=== PATIENT | female | born 1995 | race Caucasian/White ===

== ENCOUNTER 2019-08-20 09:58 | Inpatient (IN) ==
[2019-08-20] MEDS ORDERED: IMODIUM PO PRN ×2 (10:22)
[2019-08-20] MEDS ORDERED: NICOTINE GUM BUCCAL PRN (10:22)
[2019-08-20] MEDS ORDERED: DULCOLAX PR PRN (10:22)
[2019-08-20] MEDS ORDERED: TUBERSOL ID ONE (10:22)
[2019-08-20] MEDS ORDERED: MAALOX PLUS LIQUID PO PRN (10:22)
[2019-08-20] MEDS ORDERED: ZOFRAN IM PRN (10:22)
[2019-08-20] MEDS ORDERED: D5W 1,000 ML IV PRN (10:22)
[2019-08-20] MEDS ORDERED: ZOFRAN ODT PO PRN (10:22)
[2019-08-20] MEDS ORDERED: SEROQUEL PO PRN (10:22)
[2019-08-20] MEDS ORDERED: PHENOBARBITAL IV PRN (10:22)
[2019-08-20 10:46] LABS: URINE SOURCE CLEAN CATCH
[2019-08-20 10:50] LABS: BILIRUBIN URINE NEGATIVE (NEGATIVE); BLOOD URINE NEGATIVE (NEGATIVE); COLOR YELLOW; GLUCOSE URINE NEGATIVE (NEGATIVE); KETONE URINE NEGATIVE (NEGATIVE); LEUKOCYTES URINE NEGATIVE (NEGATIVE); NITRITE URINE NEGATIVE (NEGATIVE); PH URINE 6.5; PROTEIN URINE 30 mg/dL (NEGATIVE); SP GRAVITY URINE 1.033; TURBIDITY URINE CLEAR (CLEAR); UROBILINOGEN URINE NORMAL (NORMAL)
[2019-08-20 10:51] LABS: UR EPITHELIAL CELLS <10 /HPF (<10); URINE BACTERIA NEGATIVE /HPF; URINE RBC <10 /HPF (<10); URINE WBC <10 /HPF (<10)
[2019-08-20] MEDS: TYLENOL PO PRN ×3 (10:57→21:54)
[2019-08-20 11:01] LABS: UR AMPHETAMINES QUAL NONE DETECTED (NONE DETECT); UR BARBITUATES QUAL NONE DETECTED (NONE DETECT); UR BENZODIAZEPIN QUAL NONE DETECTED (NONE DETECT); UR CANNABINOIDS QUAL PRESUMPTIVE POSITIVE (NONE DETECT); UR COCAINE QUAL NONE DETECTED (NONE DETECT); UR METHADONE QUAL NONE DETECTED (NONE DETECT); UR METHAMPHETAMINE QUAL PRESUMPTIVE POSITIVE (NONE DETECT); UR OPIATES QUAL NONE DETECTED (NONE DETECT); UR OXYCODONE QUAL NONE DETECTED (NONE DETECT); UR PCP QUAL NONE DETECTED (NONE DETECT); UR PROPOXYPHENE QUAL NONE DETECTED (NONE DETECT); UR TCA QUAL PRESUMPTIVE POSITIVE (NONE DETECT)
[2019-08-20 11:09] LABS: HEMATOCRIT 42.1 % (37.0-47.0); HEMOGLOBIN 14.4 g/dL (12.0-16.0); MCH 31.2 PG (27-31); MCHC 34.2 g/dL (33-37); MCV 91.1 FL (81-99); MPV 9.7 FL (7.4-10.4); RBC 4.62 XMIL (4.2-5.4); RDW 12.8 % (11.5-14.5); WBC 7.22 X1000 (4.8-10.8)
[2019-08-20 11:26] LABS: AGAP 11; ALBUMIN 4.4 g/dL (3.5-5.0); ALKALINE PHOSPHATASE 116 U/L (32-104); AMYLASE 33 U/L (20-200); BUN 10 mg/dL (8-22); CALCIUM 9.2 mg/dL (8.8-10.2); CHLORIDE 102 mmol/L (98-107); COSMO 278; CREATININE 0.7 mg/dL (0.5-0.9); ESTIMATED GFR > 60; GLUCOSE 86 mg/dL (70-104); GOT 37 U/L (10-30); GPT 32 U/L (10-36); LIPASE 20 U/L (13-60); SODIUM 140 mmol/L (136-145); TCO2 27 mmol/L (25-35); TOTAL PROTEIN 7.3 g/dL (6.3-8.3)
[2019-08-20 11:44] LABS: PROTIME 13.7 Seconds (11.0-16.0)
[2019-08-20] MEDS: SENOKOT PO PRN (12:10)
[2019-08-20] MEDS: NICODERM PATCH TD PRN (12:11)
[2019-08-20] MEDS ORDERED: ROBAXIN PO PRN (12:53)
[2019-08-20] MEDS ORDERED: BENTYL PO PRN (12:53)
[2019-08-20] MEDS ORDERED: LIBRIUM PO PRN (12:53)
[2019-08-20] MEDS ORDERED: SINEMET 25/100 PO PRN (12:53)
[2019-08-20] MEDS ORDERED: NEURONTIN PO SCH (13:00)
[2019-08-20] MEDS: SUBOXONE 2 MG/0.5 MG FILM SL SCH (13:41)
[2019-08-20] MEDS: NEURONTIN PO SCH ×3 (13:41→20:22)
--- NOTE | 2019-08-20 14:16 | EKG Report ---
Test Performed on : 08/20/2019 2:11:29 PM Test Reason : chest pain Blood Pressure : / mmHG Vent. Rate : 095 BPM Atrial Rate : 095 BPM P-R Int : 130 ms QRS Dur : 102 ms QT Int : 356 ms P-R-T Axes : 054 060 034 degrees QTc Int : 447 ms Normal sinus rhythm. Normal ECG No previous ECGs available Confirmed by Ranjit Hernadez MD ([id number]) on 08/23/2019 7:34:26 AM
--- NOTE | 2019-08-20 14:48 | Diag Imaging Result Doc PS360 ---
EXAM: CHEST-PORTABLE - 08/20/2019 HISTORY: chest pain hard to breath TECHNIQUE: Portable chest COMPARISON: 11/01/2011 FINDINGS: Inspiration is mildly shallow. Heart size appears normal. There is subsegmental atelectasis at the lateral left base. The remainder of the lungs appear clear. There is no vascular congestion, pleural effusion, or pneumothorax identified. IMPRESSION: Mildly shallow inspiration. Mild atelectasis at lateral left base. No discrete pneumonia. No evidence of pneumothorax. Electronically signed by Malcolm Red 08/20/2019 2:45 PM
[2019-08-20] MEDS: KLONOPIN PO PRN (15:58)
[2019-08-20] MEDS: MOTRIN PO PRN (17:41)
[2019-08-20] MEDS: ATARAX PO PRN (18:47)
[2019-08-20] MEDS: LAMICTAL PO SCH (20:22)
[2019-08-20] MEDS: SEROQUEL PO SCH (20:22)
[2019-08-20] MEDS: LUVOX PO SCH (20:23)
[2019-08-20] MEDS: DESYREL PO PRN (21:54)
[2019-08-21] MEDS: SUBOXONE 2 MG/0.5 MG FILM SL SCH (01:03)
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
[2019-08-21] MEDS: MOTRIN PO PRN ×2 (04:54→22:45)
[2019-08-21] MEDS: PROTONIX [NONFORMULARY] PO SCH ×2 (04:55→05:59)
[2019-08-21] MEDS: SEROQUEL PO SCH ×2 (09:16→20:14)
[2019-08-21] MEDS: KLONOPIN PO PRN (09:16)
[2019-08-21] MEDS: THERA M PLUS PO SCH (09:17)
[2019-08-21] MEDS: VITAMIN B-1 PO SCH (09:17)
[2019-08-21] MEDS: FOLIC ACID PO SCH (09:17)
[2019-08-21] MEDS: TYLENOL PO PRN ×3 (09:17→20:45)
[2019-08-21] MEDS: NEURONTIN PO SCH ×3 (09:17→20:13)
[2019-08-21] MEDS: LUVOX PO SCH ×2 (09:17→20:14)
[2019-08-21] MEDS: LAMICTAL PO SCH ×2 (09:17→20:13)
[2019-08-21] MEDS ORDERED: MOVANTIK PO ONE (12:45)
[2019-08-21] MEDS: TESSALON PO PRN (13:21)
[2019-08-21] MEDS: ATARAX PO PRN (13:21)
[2019-08-21] MEDS ORDERED: SUBOXONE 2 MG/0.5 MG FILM SL ONE (13:29)
[2019-08-21] MEDS: DUONEB (A & A) INH PRN (17:30)
[2019-08-21] MEDS ORDERED: ATIVAN PO ONE (17:59)
--- NOTE | 2019-08-21 18:02 | PROGRESS NOTE ---
DATE: 08/21/2019 SUBJECTIVE: Patient does complain of some coughing and stabbing in her back up her thoracic region with cough. Denies any fevers. PHYSICAL EXAMINATION: Vital Signs: Reviewed. Patient is awake, alert. She is in no current respiratory distress. HEENT: Normocephalic. Neck: Supple. Cardiovascular: Regular rate. Chest: Clear. Abdomen: Soft. Extremities: Moves all extremities. Neurologic: No focal changes. Skin: Warm and dry. No rashes. ASSESSMENT: 1. Cough. Chest x-ray is clear. We are going to add breathing treatments and doxycycline. 2. Nausea. 3. Abdominal pain. 4. Myalgias. 5. Opiate abuse. PLAN: We are going to increase Suboxone and see how she does. Continue to follow. Continue counseling. Further orders as needed. cc: Francesco Daniel MD
[2019-08-21] MEDS ORDERED: PHENERGAN IV ONE (18:22)
[2019-08-21] MEDS ORDERED: SODIUM CHLORIDE 0.9% INJ ONE (18:22)
[2019-08-21] MEDS: DOXYCYCLINE PO SCH (20:14)
[2019-08-21] MEDS: SUBOXONE 8 MG/2 MG FILM SL SCH (20:14)
[2019-08-21] MEDS ORDERED: OMNICEF PO SCH (22:00)
[2019-08-21 22:10] LABS: BASO# 0.02 X1000 (0.0-0.2); BASO% 0.2 % (0.0-0.8); EOS# 0.01 X1000 (0.0-0.7); EOS% 0.1 % (0.0-10.0); HEMATOCRIT 39.9 % (37.0-47.0); HEMOGLOBIN 13.5 g/dL (12.0-16.0); IMM GRAN# 0.03 X1000 (0.0-0.04); IMM GRAN% 0.4 % (0.0-0.5); LYMPH# 1.12 X1000 (1.2-3.4); LYMPH% 13.7 % (20.5-51.1); MCH 30.6 PG (27-31); MCHC 33.8 g/dL (33-37); MCV 90.5 FL (81-99); MONO# 0.46 X1000 (0.11-0.59); MONO% 5.6 % (1.7-9.3); MPV 9.7 FL (7.4-10.4); NEUT# 6.54 X1000 (1.4-6.5); PLT 170 X1000 (130-400); RBC 4.41 XMIL (4.2-5.4); RDW 12.5 % (11.5-14.5); WBC 8.18 X1000 (4.8-10.8)
[2019-08-21] MEDS: NS 1,000 ML IV SCH (22:22)
[2019-08-21 22:37] LABS: INFLUENZA A NEGATIVE (NEGATIVE); INFLUENZA B NEGATIVE (NEGATIVE)
[2019-08-21] MEDS: DESYREL PO PRN (22:46)
[2019-08-21 22:52] LABS: AGAP 15; ALKALINE PHOSPHATASE 118 U/L (32-104); BUN 6 mg/dL (8-22); CALCIUM 8.8 mg/dL (8.8-10.2); CHLORIDE 95 mmol/L (98-107); CK PROFILE 76 U/L (24-173); COSMO 266; CREATININE 0.7 mg/dL (0.5-0.9); ESTIMATED GFR > 60; GLUCOSE 139 mg/dL (70-104); GOT 47 U/L (10-30); GPT 33 U/L (10-36); POTASSIUM 3.9 mmol/L (3.5-5.1); SODIUM 133 mmol/L (136-145); TCO2 23 mmol/L (25-35); TOTAL PROTEIN 6.8 g/dL (6.3-8.3)
[2019-08-21] MEDS ORDERED: HALL'S COUGH LOZENGE MT PRN (23:34)
[2019-08-22] MEDS: SENOKOT PO PRN (00:06)
[2019-08-22] MEDS: TESSALON PO PRN ×3 (00:06→19:35)
[2019-08-22 01:17] LABS: INR 1.01; PROTIME 13.8 Seconds (11.0-16.0)
[2019-08-22 01:18] LABS: PTT 32.5 Seconds (22.3-41.8)
[2019-08-22] MEDS: NS 1,000 ML IV SCH ×2 (05:42→17:53)
[2019-08-22] MEDS: PROTONIX [NONFORMULARY] PO SCH (06:05)
--- NOTE | 2019-08-22 06:06 | Diag Imaging Result Doc PS360 ---
EXAM: CHEST-2 VIEWS HISTORY: cough TECHNIQUE: Two views COMPARISON: 08/20/2019 FINDINGS: There are right perihilar infiltrates and there appear to be infiltrates in the left lung base. No cardiomegaly. No pleural effusions. IMPRESSION: Bilateral pneumonia Electronically signed by Renan Daily 08/22/2019 6:03 AM
[2019-08-22] MEDS: VENTOLIN HFA INH PRN ×3 (08:00→21:56)
[2019-08-22] MEDS: DUONEB (A & A) INH PRN (08:52)
[2019-08-22] MEDS: DOXYCYCLINE PO SCH ×2 (09:37→20:56)
[2019-08-22] MEDS: SEROQUEL PO SCH ×2 (09:37→20:56)
[2019-08-22] MEDS: NEURONTIN PO SCH ×3 (09:37→20:56)
[2019-08-22] MEDS: THERA M PLUS PO SCH (09:37)
[2019-08-22] MEDS: LAMICTAL PO SCH ×2 (09:37→20:55)
[2019-08-22] MEDS: KLONOPIN PO PRN ×2 (09:38→17:15)
[2019-08-22] MEDS: VITAMIN B-1 PO SCH (09:38)
[2019-08-22] MEDS: FOLIC ACID PO SCH (09:38)
[2019-08-22] MEDS: SUBOXONE 8 MG/2 MG FILM SL SCH ×2 (09:39→20:56)
[2019-08-22] MEDS: ZOFRAN IV PRN ×3 (09:45→21:10)
[2019-08-22] MEDS: LEVAQUIN 750 MG/D5W 750 MG/150 ML IVPB IV SCH (10:07)
[2019-08-22] MEDS: LUVOX PO SCH ×2 (10:07→20:56)
[2019-08-22] MEDS: TYLENOL PO PRN ×2 (11:07→17:15)
[2019-08-22] MEDS: FLAGYL 500 MG/NS 500 MG/100 ML IVPB IV SCH ×3 (12:19→22:01)
[2019-08-22] MEDS: ATARAX PO PRN ×2 (12:57→21:10)
[2019-08-22] MEDS: NICODERM PATCH TD PRN (12:57)
--- NOTE | 2019-08-22 18:14 | PROGRESS NOTE ---
DATE: 08/22/2019 SUBJECTIVE: Patient states she is still nauseated still having coughing, congestion, had fever yesterday. Has a nonproductive cough. PHYSICAL EXAMINATION: Vital Signs: Reviewed. Temp 103 degrees, pulse stable, respiratory 22, O2 sats were good on 2 L. General: Patient is awake, alert. She is in no current respiratory distress. She is coughing. HEENT: Normocephalic. Neck: Supple. Cardiovascular: Regular rate. Chest: Clear. Abdomen: Soft, nondistended, nontender. ASSESSMENT: 1. Sepsis secondary to pneumonia. 2. Pneumonia. 3. Febrile illness secondary to pneumonia. 4. Nausea, vomiting. 5. Abdominal pain. 6. Myalgias. 7. Paresthesias. 8. Opiate abuse withdrawal and stabilization. PLAN: We are going to continue the patient in the hospital. We are going to adjust her antibiotics for aspiration type pneumonia and we will follow. Continue breathing treatments, antibiotics and steroids. cc: Francesco Daniel MD
[2019-08-22] MEDS: MOTRIN PO PRN (19:35)
[2019-08-22] MEDS: DESYREL PO PRN (22:07)
[2019-08-23] MEDS: TYLENOL PO PRN ×4 (02:29→23:24)
[2019-08-23] MEDS: TESSALON PO PRN ×2 (02:29→11:11)
[2019-08-23] MEDS: VENTOLIN HFA INH PRN ×4 (03:03→21:05)
[2019-08-23] MEDS: FLAGYL 500 MG/NS 500 MG/100 ML IVPB IV SCH ×4 (03:46→22:11)
[2019-08-23] MEDS: NS 1,000 ML IV SCH (03:46)
[2019-08-23] MEDS: ATARAX PO PRN ×3 (03:54→23:25)
[2019-08-23] MEDS: PROTONIX [NONFORMULARY] PO SCH (06:09)
[2019-08-23] MEDS ORDERED: NS 1,000 ML IV SCH (06:43)
[2019-08-23] MEDS: ZOFRAN IV PRN ×2 (06:50→21:07)
[2019-08-23] MEDS: SUBOXONE 8 MG/2 MG FILM SL SCH (10:16)
[2019-08-23] MEDS: LEVAQUIN 750 MG/D5W 750 MG/150 ML IVPB IV SCH (10:16)
[2019-08-23] MEDS: FOLIC ACID PO SCH (10:17)
[2019-08-23] MEDS: LAMICTAL PO SCH ×2 (10:17→21:07)
[2019-08-23] MEDS: DOXYCYCLINE PO SCH ×2 (10:17→21:08)
[2019-08-23] MEDS: SEROQUEL PO SCH ×2 (10:17→21:07)
[2019-08-23] MEDS: VITAMIN B-1 PO SCH (10:17)
[2019-08-23] MEDS: NEURONTIN PO SCH ×3 (10:17→21:07)
[2019-08-23] MEDS: THERA M PLUS PO SCH (10:18)
--- NOTE | 2019-08-23 10:19 | PROGRESS NOTE ---
DATE: 08/23/2019 SUBJECTIVE: The patient still has significant coughing and complains of vomiting, although at times she has gagged herself to vomit. OBJECTIVE: Vital Signs: On physical examination, vital signs reviewed. Patient is currently afebrile. She did have a low-grade temperature yesterday, but has not had fever since then. T- max currently 97.9 degrees, pulse 89, respiratory rate 18, BP 107/62. General: Patient is awake, pleasant, no distress. HEENT: Normocephalic. Neck: Supple. Cardiovascular: Regular rate. Chest: Positive rhonchi throughout. Decreased breath sounds, but good air movement overall. Abdomen: Abdomen soft, nondistended, obese. Extremities: Moves all extremities. Neurologic: No changes. ASSESSMENT: 1. Pneumonia. 2. Fever. 3. Sepsis. 4. Opiate abuse withdrawal and stabilization. 5. Posttraumatic stress disorder with bipolar. PLAN: We will continue patient in the hospital. Continue Suboxone on antibiotics. Her COVID-19 test is currently pending. cc: Francesco Daniel MD
[2019-08-23] MEDS: LUVOX PO SCH ×2 (11:10→21:08)
[2019-08-23] MEDS: PHENERGAN PO PRN (11:11)
[2019-08-23] MEDS: KLONOPIN PO PRN (11:11)
[2019-08-23] MEDS: NICODERM PATCH TD PRN (13:41)
[2019-08-23] MEDS ORDERED: KLONOPIN PO PRN (15:49)
[2019-08-23] MEDS ORDERED: SUBOXONE 2 MG/0.5 MG FILM SL SCH (21:00)
[2019-08-24] MEDS: PHENERGAN PO PRN (00:41)
[2019-08-24] MEDS: FLAGYL 500 MG/NS 500 MG/100 ML IVPB IV SCH (03:49)
[2019-08-24] MEDS: PROTONIX [NONFORMULARY] PO SCH (06:18)
[2019-08-24] MEDS: VENTOLIN HFA INH PRN ×2 (08:00→15:48)
[2019-08-24] MEDS ORDERED: LASIX IV ONE (08:26)
[2019-08-24] MEDS: FOLIC ACID PO SCH (08:53)
[2019-08-24] MEDS: LUVOX PO SCH ×2 (08:53→21:46)
[2019-08-24] MEDS: THERA M PLUS PO SCH (08:54)
[2019-08-24] MEDS: LAMICTAL PO SCH ×2 (08:54→20:15)
[2019-08-24] MEDS: SUBOXONE 2 MG/0.5 MG FILM SL SCH ×3 (08:54→16:54)
[2019-08-24] MEDS: SEROQUEL PO SCH ×2 (08:54→20:15)
[2019-08-24] MEDS: VITAMIN B-1 PO SCH (08:54)
[2019-08-24] MEDS: DOXYCYCLINE PO SCH ×2 (08:54→20:15)
[2019-08-24] MEDS: NEURONTIN PO SCH ×3 (08:54→20:15)
[2019-08-24] MEDS: LEVAQUIN 750 MG/D5W 750 MG/150 ML IVPB IV SCH (08:55)
[2019-08-24] MEDS ORDERED: PHENERGAN PR PRN ×2 (08:58→19:44)
[2019-08-24] MEDS ORDERED: VANCOMYCIN IV PER PHARMACY MISC SCH ×2 (09:00→20:00)
[2019-08-24] MEDS: MAXIPIME 1 GM in NS 50 ML IV SCH ×3 (10:41→21:45)
[2019-08-24] MEDS ORDERED: VANCOMYCIN 2,000 MG in NS 500 ML IV SCH (11:00)
--- NOTE | 2019-08-24 12:22 | Diag Imaging Result Doc PS360 ---
EXAM: CHEST-PORTABLE INDICATION: dyspnea TECHNIQUE: One view COMPARISON: 08/21/2019 FINDINGS: There has been interval worsening of patchy infiltrates bilaterally throughout both lungs, worse on the right. There is no discrete pleural fluid collection or pneumothorax. Cardiac silhouette is stable. IMPRESSION: Interval worsening of bilateral airspace infiltrates suggesting pneumonia. Electronically signed by Fletcher Marrero 08/24/2019 12:20 PM
[2019-08-24 12:47] LABS: BE 2.2 mmoll (-3.0-3.0); BLOOD TYPE ARTERIAL; HCO3-(ACT) 26.3 mmoll (20.0-26.0); METHB 1.4 % (0.0-1.5); O2(CT) 18.2 mL/dL (15.0-23.0); PO2(98.6) 50 mmHg (60-100); SAMPLE BLOOD; SAO2 90.6 % (95.0-100.0); THB 14.9 g/dL (11.5-17.4); pH(98.6) 7.36 (7.35-7.45)
[2019-08-24] MEDS: TYLENOL PO PRN ×2 (12:51→20:46)
[2019-08-24 12:52] LABS: MODALITY CANNULA; O2HB 87.2 % (95.0-99.0); PCO2(98.6) 51 mmHg (35-45)
[2019-08-24] MEDS: KLONOPIN PO PRN ×2 (12:52→20:45)
[2019-08-24 12:53] LABS: ALLEN TEST YES
[2019-08-24] MEDS ORDERED: TOPROL XL PO ONE (14:35)
[2019-08-24] MEDS: NICODERM PATCH TD PRN (17:30)
[2019-08-24] MEDS ORDERED: HALL'S COUGH LOZENGE MT PRN (19:42)
[2019-08-24] MEDS ORDERED: MOTRIN PO PRN (19:43)
[2019-08-24] MEDS ORDERED: ROBAXIN PO PRN (19:45)
[2019-08-24] MEDS ORDERED: NICOTINE GUM BUCCAL PRN (19:45)
[2019-08-24] MEDS ORDERED: ZOFRAN ODT PO PRN (19:50)
[2019-08-24] MEDS: TESSALON PO PRN (20:41)
[2019-08-24] MEDS: VANCOMYCIN 2 GM in NS 500 ML IV SCH ×2 (21:45→22:35)
[2019-08-25 03:18] LABS: ALLEN TEST YES; BE 1.5 mmoll (-3.0-3.0); BLOOD TYPE ARTERIAL; HCO3-(ACT) 25.8 mmoll (20.0-26.0); METHB 1.6 % (0.0-1.5); O2(CT) 15.9 mL/dL (15.0-23.0); SAMPLE BLOOD; SAO2 87.9 % (95.0-100.0); THB 13.3 g/dL (11.5-17.4); pH(98.6) 7.33 (7.35-7.45)
[2019-08-25 03:19] LABS: MODALITY NRB
[2019-08-25 03:21] LABS: PCO2(98.6) 54 mmHg (35-45)
[2019-08-25 03:22] LABS: O2HB 85.1 % (95.0-99.0); PO2(98.6) 49 mmHg (60-100)
[2019-08-25] MEDS ORDERED: DIPRIVAN 1% 1,000 MG/100 ML BOTTLE ONE (03:35)
[2019-08-25] MEDS ORDERED: QUELICIN ONE (03:35)
[2019-08-25] MEDS ORDERED: AMIDATE ONE (03:35)
[2019-08-25] MEDS: ZOFRAN IV PRN (03:40)
[2019-08-25] MEDS ORDERED: QUELICIN IV ONE (04:00)
[2019-08-25] MEDS ORDERED: AMIDATE IV ONE (04:00)
[2019-08-25] MEDS ORDERED: DIPRIVAN 1% 1,000 MG/100 ML BOTTLE IV SCH (05:00)
[2019-08-25 06:01] LABS: BASO# 0.03 X1000 (0.0-0.2); BASO% 0.5 % (0.0-0.8); EOS# 0.02 X1000 (0.0-0.7); EOS% 0.3 % (0.0-10.0); HEMATOCRIT 35.4 % (37.0-47.0); IMM GRAN# 0.03 X1000 (0.0-0.04); IMM GRAN% 0.5 % (0.0-0.5); LYMPH# 0.62 X1000 (1.2-3.4); LYMPH% 9.6 % (20.5-51.1); MCH 30.8 PG (27-31); MCHC 33.9 g/dL (33-37); MONO# 0.42 X1000 (0.11-0.59); MONO% 6.5 % (1.7-9.3); MPV 11.1 FL (7.4-10.4); NEUT# 5.31 X1000 (1.4-6.5); NEUT% 82.6 % (42.2-75.2); PLT 128 X1000 (130-400); RBC 3.89 XMIL (4.2-5.4); RDW 12.7 % (11.5-14.5); WBC 6.43 X1000 (4.8-10.8)
[2019-08-25 06:04] LABS: AGAP 15; BUN 5 mg/dL (8-22); CALCIUM 8.1 mg/dL (8.8-10.2); CHLORIDE 102 mmol/L (98-107); COSMO 276; CREATININE 0.8 mg/dL (0.5-0.9); ESTIMATED GFR > 60; GLUCOSE 113 mg/dL (70-104); POTASSIUM 3.2 mmol/L (3.5-5.1); SODIUM 139 mmol/L (136-145); TCO2 22 mmol/L (25-35)
[2019-08-25] MEDS ORDERED: OFIRMEV 1000 MG/ISOTONIC SOLN 1,000 MG/100 ML BOTTLE IV PRN ×2 (06:10→20:18)
[2019-08-25] MEDS: PROTONIX [NONFORMULARY] PO SCH (07:19)
[2019-08-25] MEDS: DIPRIVAN 1% 1,000 MG/100 ML BOTTLE IV SCH ×8 (07:20→22:01)
--- NOTE | 2019-08-25 07:52 | Diag Imaging Result Doc PS360 ---
EXAM: CHEST-PORTABLE INDICATION: ETT placement TECHNIQUE: 2 views COMPARISON: 08/24/2019 FINDINGS: There is a newly placed ET tube with the tip projecting over the trachea and above the krystian just below the thoracic inlet at the T3 level. There is a newly placed NG tube. The tip projects below the diaphragm and is assumed to be in the lumen of the stomach in expected position. There has been significant worsening of infiltrate throughout the right lung with marked increase in density. There has also probably been slight worsening of patchy infiltrate on the left. The cardiac silhouette is stable. IMPRESSION: Interval placement of ET tube and NG tube as described and worsening of infiltrates, especially on the right. Electronically signed by Fletcher Marrero 08/25/2019 7:49 AM
[2019-08-25] MEDS: NEURONTIN PO SCH (08:02)
[2019-08-25] MEDS: VITAMIN B-1 PO SCH (08:02)
[2019-08-25] MEDS: LAMICTAL PO SCH ×2 (08:03→21:55)
[2019-08-25] MEDS: THERA M PLUS PO SCH (08:03)
[2019-08-25] MEDS: MORPHINE IV PRN (08:03)
[2019-08-25] MEDS: ATIVAN IV PRN (08:03)
[2019-08-25] MEDS: FOLIC ACID PO SCH (08:03)
[2019-08-25] MEDS: SEROQUEL PO SCH (08:03)
[2019-08-25] MEDS ORDERED: SUBOXONE 2 MG/0.5 MG SL SCH (09:00)
[2019-08-25] MEDS: MAXIPIME 1 GM in NS 50 ML IV SCH ×2 (09:41→21:55)
[2019-08-25 10:32] LABS: ALLEN TEST YES; BE 3.8 mmoll (-3.0-3.0); BLOOD TYPE ARTERIAL; HCO3-(ACT) 27.9 mmoll (20.0-26.0); METHB 1.5 % (0.0-1.5); O2(CT) 16.2 mL/dL (15.0-23.0); O2HB 96.2 % (95.0-99.0); PO2(98.6) 103 mmHg (60-100); SAMPLE BLOOD; SAO2 99.2 % (95.0-100.0); SRATE 14 BPM; THB 11.9 g/dL (11.5-17.4); TVOL 400 mL; pH(98.6) 7.33 (7.35-7.45)
[2019-08-25 10:33] LABS: MODALITY VENTILATOR; PCO2(98.6) 59 mmHg (35-45)
[2019-08-25] MEDS: VANCOMYCIN 2 GM in NS 500 ML IV SCH ×2 (11:20→22:41)
[2019-08-25] MEDS ORDERED: [UNRECOGNIZED DRUG - OTHER] IV ONE (12:55)
[2019-08-25] MEDS: FENTANYL 1,000 MICROGM in NS 80 ML IV SCH ×2 (13:25→20:18)
[2019-08-25] MEDS: NIMBEX 80 MG in NS 160 ML IV SCH ×3 (14:34→22:41)
[2019-08-25] MEDS: LUVOX PO SCH (14:35)
[2019-08-25] MEDS: LACRI-LUBE OPH OINT BOTH EYES SCH (14:45)
[2019-08-25] MEDS: LOVENOX SUBQ SCH (15:00)
[2019-08-25] MEDS: PROTONIX IV SCH (15:00)
--- NOTE | 2019-08-25 15:38 | Diag Imaging Result Doc PS360 ---
EXAM: CHEST-PORTABLE INDICATION: central line placement TECHNIQUE: One view COMPARISON: 08/25/2019 FINDINGS: There is a newly placed left subclavian line. The tip projects over the SVC in the expected position. There is no evidence of pneumothorax postplacement. Bilateral consolidations, worse on the right, are essentially stable. No new consolidation is identified. Cardiac silhouette is stable. IMPRESSION: Interval placement of left central line with no evidence of postplacement pneumothorax. Stable chest, otherwise. Electronically signed by Fletcher Marrero 08/25/2019 3:36 PM
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
--- NOTE | 2019-08-25 15:50 | OPERATIVE NOTE ---
PROCEDURE DATE: PROCEDURE PERFORMED: Left subclavian central line placement. CLINICAL INDICATIONS: Critically ill patient in need of central venous access. PROCEDURE: The left subclavian site was prepped and draped in usual sterile fashion. The patient was on mechanical ventilation but has received a paralytic along with sedation. The patient was placed in Trendelenburg position. The left hand was tractioned by an physical therapy assistant instructor to line up the anatomy. The vein was identified on the 2nd pass of the introducer needle. There was good blood return. The wire was advanced through the needle without difficulty. Triple-lumen catheter was advanced over the wire and sutured into position. A Biopatch was placed at the entrance. The catheter was dressed by this practitioner. Postprocedure chest x-ray reveals the line to be in good position without evidence of pneumothorax. cc: Octavio Jesus MD
[2019-08-25 16:10] LABS: ALLEN TEST YES; BE 3.6 mmoll (-3.0-3.0); BLOOD TYPE ARTERIAL; HCO3-(ACT) 27.7 mmoll (20.0-26.0); METHB 1.5 % (0.0-1.5); O2(CT) 16.8 mL/dL (15.0-23.0); O2HB 96.8 % (95.0-99.0); PO2(98.6) 176 mmHg (60-100); SAMPLE BLOOD; SAO2 99.5 % (95.0-100.0); SRATE 26 BPM; THB 12.1 g/dL (11.5-17.4); TVOL 430 mL; pH(98.6) 7.35 (7.35-7.45)
[2019-08-25] MEDS: ALBUTEROL NEB INH SCH ×2 (16:10→19:50)
[2019-08-25 16:13] LABS: MODALITY VENTILATOR; PCO2(98.6) 55 mmHg (35-45)
[2019-08-25] MEDS: D5 NS 1,000 ML IV SCH (16:19)
[2019-08-25] MEDS: PLAQUENIL NG SCH (16:23)
--- NOTE | 2019-08-25 17:37 | PROGRESS NOTE ---
DATE: 08/25/2019 INTERVAL HISTORY: The patient with significant respiratory decompensation overnight requiring intubation. O2 requirements have increased, this morning on 100% oxygenation with PEEP of 5 with O2 sats that were still marginal. Increased PEEP with a reasonable response. Discussed with pulmonology. The patient now paralyzed and further sedated. Still afebrile to 101.3. REVIEW OF SYSTEMS: Unable to obtain secondary to patient's mental status. LABS: WBC 6.4, hemoglobin 12, hematocrit 35.4, platelets 128,000. ABG with pH 7.35, pCO2 55, PO2 176, on ventilator with 100% oxygen. Sodium 139, potassium 3.2, BUN 5, creatinine 0.8 glucose 113. IMAGING: Chest x-ray this morning with ET tube and NG tube in place with significant worsening of infiltrates throughout the right lung and slight worsening of patchy infiltrate on the left. Repeat x-ray this afternoon with left subclavian central line in place without pneumothorax: Stable, severe infiltrates. VITALS: T-max 101.3 degrees, pulse 87 respirations 26, blood pressure 97/50, O2 saturation 98% on ventilator with 100% oxygen, PEEP of 12. PHYSICAL EXAMINATION: General: No acute distress, intubated and sedated, ill- appearing. HEENT: Normocephalic, atraumatic. ET and NG tubes in place. Cardiovascular: Regular rate and rhythm. No murmurs noted. Pulmonary: A few scattered rales, but excellent air entry. Abdomen: Soft, nontender, nondistended. Bowel sounds decreased, but present. Extremities: Peripheral pulses intact. No clubbing, cyanosis, or edema. Neurologic: Exam limited by sedation. Pupils: Equal, round, reactive to light. Psychiatric: Sedated. ASSESSMENT AND PLAN: 1. Acute hypoxic respiratory failure, possible pneumonia, likely Coronavirus Disease 2019 infection. The patient on empiric antibiotics with vancomycin and cefepime, which we will continue. Initiated on azithromycin and hydroxychloroquine by pulmonology. Chest x-ray consistent with acute respiratory distress syndrome. So, the patient now on paralytic. If she continues to worsen, we will strongly consider proning the patient. Coronavirus Disease 2019 testing pending. Blood pressure low normal, but with acceptable maps currently. The patient critically ill in intensive care unit and we will continue monitoring closely. 2. Polysubstance abuse. The patient with intermittent methamphetamine, cocaine, illicit opiates and alcohol abuse. We will veterans rehabilitation counselor when or if she is extubated. 3. Nausea and vomiting. None since intubation. 4. Opiate abuse and withdrawal. The patient now on sedation with fentanyl, which we will continue. 5. Patient with rapidly progressive respiratory failure. Suspect Coronavirus Disease 2019 infection and acute respiratory distress syndrome. Prognosis guarded. MTDD
[2019-08-25] MEDS: MUCOMYST 20% INH SCH (19:50)
[2019-08-25] MEDS ORDERED: TYLENOL PO PRN (20:18)
[2019-08-26] MEDS: ALBUTEROL NEB INH SCH ×7 (00:05→23:33)
[2019-08-26] MEDS: DIPRIVAN 1% 1,000 MG/100 ML BOTTLE IV SCH ×8 (01:34→20:56)
[2019-08-26] MEDS: FENTANYL 1,000 MICROGM in NS 80 ML IV SCH ×4 (03:36→23:40)
[2019-08-26] MEDS: PLAQUENIL NG SCH ×2 (03:36→15:06)
[2019-08-26] MEDS: NIMBEX 80 MG in NS 160 ML IV SCH ×5 (03:37→20:49)
[2019-08-26] MEDS: LACRI-LUBE OPH OINT BOTH EYES SCH ×2 (03:37→14:52)
[2019-08-26 05:30] LABS: ALLEN TEST YES; BE 1.2 mmoll (-3.0-3.0); BLOOD TYPE ARTERIAL; HCO3-(ACT) 25.8 mmoll (20.0-26.0); METHB 1.6 % (0.0-1.5); O2(CT) 26.3 mL/dL (15.0-23.0); PCO2(98.6) 46 mmHg (35-45); PO2(98.6) 220 mmHg (60-100); SAMPLE BLOOD; SAO2 99.9 % (95.0-100.0); SRATE 26 BPM; TVOL 430 mL; pH(98.6) 7.38 (7.35-7.45)
[2019-08-26 05:31] LABS: MODALITY VENTILATOR
[2019-08-26 05:42] LABS: HEMATOCRIT 34.7 % (37.0-47.0); HEMOGLOBIN 11.2 g/dL (12.0-16.0); MCH 29.9 PG (27-31); MCHC 32.3 g/dL (33-37); MCV 92.5 FL (81-99); MPV 10.5 FL (7.4-10.4); RBC 3.75 XMIL (4.2-5.4); RDW 13.1 % (11.5-14.5); WBC 4.74 X1000 (4.8-10.8)
[2019-08-26 05:56] LABS: AGAP 9; ALB/GLOB RATIO 0.8; ALBUMIN 2.6 g/dL (3.5-5.0); ALKALINE PHOSPHATASE 91 U/L (32-104); BUN 5 mg/dL (8-22); CALCIUM 7.9 mg/dL (8.8-10.2); CHLORIDE 107 mmol/L (98-107); COSMO 285; CREATININE 0.7 mg/dL (0.5-0.9); ESTIMATED GFR > 60; GLUCOSE 118 mg/dL (70-104); GOT 27 U/L (10-30); GPT 11 U/L (10-36); POTASSIUM 3.1 mmol/L (3.5-5.1); SODIUM 144 mmol/L (136-145); TCO2 28 mmol/L (25-35); TOTAL BILIRUBIN 0.23 mg/dL (0.20-1.00); TOTAL PROTEIN 5.7 g/dL (6.3-8.3)
[2019-08-26 06:29] LABS: C REACTIVE PROT QUANT 346.52 mg/L (0.00-5.00); MAGNESIUM 1.8 mg/dL (1.5-2.7); PHOSPHORUS 1.5 mg/dL (2.7-4.5)
[2019-08-26] MEDS: LUVOX PO SCH (06:31)
[2019-08-26] MEDS ORDERED: TYLENOL NG PRN (07:39)
--- NOTE | 2019-08-26 07:39 | Diag Imaging Result Doc PS360 ---
EXAM: CHEST-PORTABLE INDICATION: respiratory failure TECHNIQUE: One view COMPARISON: 08/25/2019 FINDINGS: Support tubes and lines are in stable positions. There has probably been slight improvement of the diffuse consolidation throughout the right lung, at least at the right upper lung zone. Much milder consolidation on the left is stable to marginally improved. No new consolidation is identified. Cardiac silhouette is stable. IMPRESSION: Likely marginal improvement as described. Electronically signed by Fletcher Marrero 08/26/2019 7:36 AM
[2019-08-26] MEDS: MUCOMYST 20% INH SCH ×2 (07:55→20:02)
--- NOTE | 2019-08-26 08:32 | EKG Report ---
Test Performed on : 08/26/2019 08:23:52 AM Test Reason : QTc Monitoring Blood Pressure : / mmHG Vent. Rate : 112 BPM Atrial Rate : 112 BPM P-R Int : 134 ms QRS Dur : 102 ms QT Int : 364 ms P-R-T Axes : 052 069 011 degrees QTc Int : 496 ms Sinus tachycardia. Possible Left atrial enlargement Cannot rule out Inferior infarct , age undetermined Nonspecific T wave abnormality Anterolateral leads Abnormal ECG When compared with ECG of 20-AUG-2019 14:11, T wave inversion more evident in Inferior leads Nonspecific T wave abnormality, worse in Anterolateral leads Confirmed by Dayday Boss MD ([id number]) on 08/27/2019 2:48:25 PM
[2019-08-26] MEDS: NEUTRA-PHOS PO SCH ×3 (08:59→15:40)
[2019-08-26] MEDS: MAGNESIUM SULFATE 2 GM/S.W.I. 2 GM/50 ML IVPB IV SCH ×2 (08:59→11:11)
[2019-08-26] MEDS: LAMICTAL PO SCH ×2 (08:59→20:55)
[2019-08-26] MEDS: POTASSIUM CHLORIDE 20 MEQ/SWI 20 MEQ/100 ML IVPB IV SCH ×2 (08:59→11:11)
[2019-08-26] MEDS: D5 NS 1,000 ML IV SCH ×2 (09:14→10:51)
[2019-08-26] MEDS: MAXIPIME 1 GM in NS 50 ML IV SCH ×2 (09:56→21:05)
--- NOTE | 2019-08-26 10:05 | PROGRESS NOTE ---
DATE: 08/26/2019 INTERVAL HISTORY: Ms. Tomas was transferred from [facility] to [place] yesterday and was intubated for respiratory failure. She continues to have spikes of fever. She is currently on ventilator and on isolation precautions. SUBJECTIVE: She is intubated and sedated, and does not appear in any distress, though at the time of my evaluation, she was fidgety and was fighting the ventilator. REVIEW OF SYSTEMS: Could not be obtained. VITALS: Latest temperature of 100.2 degrees, pulse of 105, respiratory 23, blood pressure 128/69, saturating 98% on mechanical ventilation. PHYSICAL EXAMINATION: Lines and tubes: She has endotracheal tube, NG tube, left-sided subclavian central line urine catheter. Eyes: Pupils are bilaterally equal, reacting to light. Lungs: Air entry bilaterally equal. No wheeze. She has bilateral rhonchi, especially on the right lung chinchilla. Mild inframammary crackles. Heart: S1, S2 normal. No murmur, rub, or gallop. Tachycardic. Abdomen: Soft, obese, nontender. Extremities: No lower extremity edema. She is moving all extremities spontaneously, and was fidgety at the time of my evaluation. I had discussed with the nurse about increasing her sedation. LABS: Suggestive of hemoglobin of 11.2, platelets of 114, pCO2 of 46, pH of 7.38. She is on 75% ventilator. She does have potassium of 3.1, BUN of 5, creatinine 0.7. Her phosphorus is 1.5, magnesium of 1.8. MICROBIOLOGY: No new data. IMAGING: Chest x-ray this morning suggests likely marginal improvement throughout the right lung. ASSESSMENT AND PLAN: 1. Acute hypoxic respiratory failure due to multifocal pneumonia with suspicion of Coronavirus Disease 2019. Continue intravenous vancomycin, intravenous cefepime and hydroxy chloroquine. I will get repeat sputum culture, and will follow up urine Streptococcus and urine Streptococcus antigens. Coronavirus Disease 2019 results are pending. Appreciate Pulmonology recommendation for low tidal volume, lung protective ventilation. Continue propofol, fentanyl and Nimbex for sedation and oxygenation. I will appreciate recommendation regarding titrating her FiO2 by pulmonology team. 2. Polysubstance abuse on presentation. The patient had tricyclics, methamphetamine and cannabis positive. We will recommend quitting those substances when she is able to participate in clinical encounter. 3. History of opiate abuse. The patient was recently admitted to [facility] for withdrawals. She is currently on fentanyl drip. 4. History of chronic pain, anxiety, depression, posttraumatic stress disorder. I will continue her on her home fluvoxamine, lamotrigine. 5. Suspected sepsis due to multifocal pneumonia. Plan as mentioned above. 6. Others. Continue enoxaparin for deep venous thrombosis prophylaxis and pantoprazole for stress ulcer prophylaxis. DISPOSITION: Continue monitor to patient in the intensive care unit. TIME SPENT: 40 minutes of critical care time was spent taking care of this patient. ADDENDUM: I called Ms. Tomas's mother. I discussed with her about Ms. Tomas's clinical condition including hypoxic respiratory failure, suspected COVID 19 infection. We also discussed about her decreasing oxygen needs. She asked me a few questions regarding her nutrition, bowel movements and I answered them all. She requests to be updated daily about Ms. Tomas's clinical condition. cc: Yoandy Bailey MD MTDD
[2019-08-26] MEDS: VANCOMYCIN 2 GM in NS 500 ML IV SCH (12:36)
--- NOTE | 2019-08-26 14:40 | PULMONOLOGY PROGRESS NOTE ---
DATE: 08/26/2019 SUBJECTIVE: The patient is sedated and paralyzed. OBJECTIVE: Vital signs: Maximum temperature in the last 24 hours is 101.3 degrees. BP 138/76, heart rate 128, respiratory rate 26, oxygen saturation 97% on 60% FiO2. HEENT: Pupils are equal and slow to react. Oropharynx appears clear. Neck: Supple. Chest: Reveals crackles bilaterally without significant wheezing or rhonchi. Cardiac: S1, S2, increased rate. Abdomen: Soft extremities. Extremities: Slightly warm to the touch. LABORATORIES: Chest x-ray reveals the bilateral infiltrates right greater than left with possible marginal improvement. This is likely a PEEP effect and not true improvement. Arterial blood gas reveals a pH 7.38, pCO2 of 46, pO2 of 220. White blood count 4.74, hemoglobin 11.2, platelet count 114,000. CRP is 346, phosphorus is 1.5. IMPRESSION: A 24-year-old with: 1. Acute hypoxemic respiratory failure. 2. Acute hypercapnic respiratory failure. 3. Bilateral pneumonia. 4. Leukopenia, relative thrombocytopenia, a marked increase in CRP with a negative influenza screen. Presentation is consistent with a COVID-19 infection but has not yet been proven. PLAN: 1. Continue sedation and paralytic at least 24 more hours and perhaps longer. 2. Continue tube feeds. 3. Will avoid antipyretics and steroids. In general, steroids have been suggested to make this disease process worse, although there is no formed clinical data. The virus is sensitive to heat and therefore if the patient's temperature remains less than 102.5, I will not use an antipyretic, although this again is not a decision made with firm science. 4. Await COVID-19 test. cc: Octavio Jesus MD
[2019-08-26] MEDS: LOVENOX SUBQ SCH (14:51)
[2019-08-26] MEDS: PROTONIX IV SCH (14:52)
[2019-08-26] MEDS: SODIUM CHLORIDE 0.9% INJ SCH (14:52)
[2019-08-26] MEDS: LUVOX NG SCH (20:55)
[2019-08-26] MEDS ORDERED: LASIX IV ONE (22:00)
[2019-08-26] MEDS: DULCOLAX PR SCH (22:41)
[2019-08-27] MEDS: DIPRIVAN 1% 1,000 MG/100 ML BOTTLE IV SCH ×10 (00:03→22:27)
[2019-08-27] MEDS: VANCOMYCIN 2 GM in NS 500 ML IV SCH ×2 (00:04→13:20)
[2019-08-27] MEDS: NIMBEX 80 MG in NS 160 ML IV SCH ×2 (01:35→05:46)
[2019-08-27] MEDS: ALBUTEROL NEB INH SCH ×6 (03:38→23:07)
[2019-08-27] MEDS: LACRI-LUBE OPH OINT BOTH EYES SCH ×2 (04:09→13:53)
[2019-08-27] MEDS: PLAQUENIL NG SCH ×2 (04:25→16:05)
[2019-08-27 04:31] LABS: ALLEN TEST YES; BE 5.7 mmoll (-3.0-3.0); BLOOD TYPE ARTERIAL; HCO3-(ACT) 29.4 mmoll (20.0-26.0); METHB 1.3 % (0.0-1.5); O2(CT) 15.3 mL/dL (15.0-23.0); O2HB 96.3 % (95.0-99.0); PCO2(98.6) 48 mmHg (35-45); PO2(98.6) 92 mmHg (60-100); SAMPLE BLOOD; SAO2 98.9 % (95.0-100.0); SRATE 26 BPM; THB 11.2 g/dL (11.5-17.4); TVOL 430 mL; pH(98.6) 7.42 (7.35-7.45)
[2019-08-27 04:33] LABS: MODALITY VENTILATOR
[2019-08-27] MEDS: FENTANYL 1,000 MICROGM in NS 80 ML IV SCH ×3 (05:45→20:27)
[2019-08-27 06:18] LABS: HEMATOCRIT 32.7 % (37.0-47.0); HEMOGLOBIN 10.9 g/dL (12.0-16.0); MCH 30.6 PG (27-31); MCHC 33.3 g/dL (33-37); MCV 91.9 FL (81-99); MPV 10.8 FL (7.4-10.4); RBC 3.56 XMIL (4.2-5.4); RDW 13.2 % (11.5-14.5); WBC 5.14 X1000 (4.8-10.8)
[2019-08-27 06:52] LABS: AGAP 10; ALB/GLOB RATIO 0.9; ALBUMIN 2.4 g/dL (3.5-5.0); ALKALINE PHOSPHATASE 86 U/L (32-104); BUN 5 mg/dL (8-22); CALCIUM 7.6 mg/dL (8.8-10.2); CHLORIDE 108 mmol/L (98-107); COSMO 288; CREATININE 0.6 mg/dL (0.5-0.9); ESTIMATED GFR > 60; GLUCOSE 144 mg/dL (70-104); GOT 28 U/L (10-30); GPT 10 U/L (10-36); POTASSIUM 2.7 mmol/L (3.5-5.1); SODIUM 145 mmol/L (136-145); TCO2 27 mmol/L (25-35); TOTAL PROTEIN 5.1 g/dL (6.3-8.3)
--- NOTE | 2019-08-27 07:24 | EKG Report ---
Test Performed on : 08/27/2019 07:12:33 AM Test Reason : QTc Monitoring Blood Pressure : / mmHG Vent. Rate : 113 BPM Atrial Rate : 113 BPM P-R Int : 146 ms QRS Dur : 116 ms QT Int : 364 ms P-R-T Axes : 083 092 -33 degrees QTc Int : 499 ms Sinus tachycardia. Rightward axis Inferior infarct (cited on or before 26-AUG-2019) Inverted T waves in the anterior leads. Abnormal ECG When compared with ECG of 26-AUG-2019 08:23, (Unconfirmed) Inverted T waves have replaced nonspecific T wave abnormality in Anterior leads Confirmed by Dayday Boss MD ([id number]) on 08/27/2019 3:01:50 PM
--- NOTE | 2019-08-27 07:40 | Diag Imaging Result Doc PS360 ---
EXAM: CHEST-PORTABLE HISTORY: respiratory failure TECHNIQUE: Single view COMPARISON: 08/26/2019 FINDINGS: No change in the endotracheal tube, the nasogastric tube, or the left subclavian line. There are dense infiltrates in the right lung. These are slightly more prominent. Left basilar infiltrates are similar to the prior exam. No cardiomegaly. No effusions identified. IMPRESSION: Mild interval worsening Electronically signed by Renan Daily 08/27/2019 7:38 AM
[2019-08-27] MEDS: MUCOMYST 20% INH SCH ×2 (08:06→20:30)
[2019-08-27] MEDS: LAMICTAL PO SCH ×2 (08:40→20:26)
[2019-08-27] MEDS: LUVOX NG SCH ×2 (08:40→20:26)
[2019-08-27] MEDS: VITAMIN B-1 NG SCH (08:40)
[2019-08-27] MEDS: DULCOLAX PR SCH ×2 (08:40→20:27)
[2019-08-27] MEDS: D5 NS 1,000 ML IV SCH ×2 (08:41→20:26)
[2019-08-27] MEDS ORDERED: ATIVAN IV ONE (10:15)
[2019-08-27] MEDS: MAXIPIME 1 GM in NS 50 ML IV SCH ×2 (10:48→21:01)
--- NOTE | 2019-08-27 12:16 | PULMONOLOGY PROGRESS NOTE ---
DATE: 08/27/2019 SUBJECTIVE: The patient's paralytic was discontinued prior to my arrival to the room. She does open her eyes. She does move her upper extremities and lower extremities. She did reach for the endotracheal tube and was placed in soft restraints. OBJECTIVE: Vital Signs: Maximum temperature in the last 24 hours 100.4 degrees, blood pressure 122/53, heart rate 120, respiratory rate 27, oxygen saturation 97%. HEENT: Pupils are equal and reactive. Oropharynx appears clear, but evaluation is limited. Neck: Supple. Chest: The chest reveals scattered crackles bilaterally. Cardiac: S1, S2. Abdomen: Obese and soft, with good bowel sounds. Extremities: The extremities reveal 1+ peripheral edema. DIAGNOSTIC DATA: Chest x-ray reveals slight worsening in the right lung. Microbiology reveals no new data. White blood count 5.14, hemoglobin 9, platelet count 109,000. D-dimer elevated at 9.69. Ferritin elevated at 597. Arterial blood gas reveals a pH of 7.42, pCO2 of 48, pO2 of 92. IMPRESSION: A 24-year-old with 1. Acute hypoxemic respiratory failure. 2. Acute hypercapnic respiratory failure. 3. Bilateral pneumonia with worsening consolidation in the right lung, with all routine cultures negative. 4. Leukopenia, thrombocytopenia, elevated CRP, elevated ferritin, elevated D-dimer. The presentation is all consistent with Coronavirus Disease 2019 (COVID-19) infection. Although I believe the initial test was negative, there is a second test pending. PLAN: 1. Attempt to maintain patient off paralytic unless her peak airway pressures climb. 2. Continue tube feeds. 3. Avoid antipyretics and steroids if possible. 4. Await COVID-19 confirmation. 5. I spoke with her mother this morning. She is aware that she is critically ill. TIME SPENT: Time spent in critical care management, 45 minutes. cc: Octavio Jesus MD
[2019-08-27] MEDS: POTASSIUM CHLORIDE 20% LIQUID PO SCH ×2 (13:20→16:58)
[2019-08-27] MEDS: LOVENOX SUBQ SCH (13:54)
[2019-08-27] MEDS: PROTONIX IV SCH (13:55)
[2019-08-27] MEDS: SODIUM CHLORIDE 0.9% INJ SCH (13:56)
--- NOTE | 2019-08-27 14:39 | PROGRESS NOTE ---
DATE: 08/27/2019 SUBJECTIVE: I have seen and examined the patient today. Ms. Tomas continues to be paralyzed and intubated. Currently, her vitals show blood pressure 125/59, pulse of 121, respirations 24, and temperature is 99.3 degrees. Patient is saturating well on the mechanical ventilation. OBJECTIVE: General: Ms. Tomas is a 24-year-old female. She is in bed currently intubated and paralyzed, and also sedated. HEENT: Mucosa is pink and moist. Anicteric. Acyanotic. Neck: Neck is supple. Lungs: Chest air entry is bilaterally reduced. Crepitations in the posterior lungs. Cardiovascular: Tachycardic, but regular rhythm. No murmurs, no rubs, no gallops. GI: Abdomen was soft. Bowel sounds present. Extremities: No pedal edema. BLIND INSTALLER: Patient is currently sedated and paralyzed. LABORATORY DATA: Patient's I's and O's, urine output was 2600. She is currently positive balance of 8872. WBC of 5.14, hemoglobin of 10.9, and platelet count of 111,000. Chemistry is also reviewed. Creatinine is normal. So far. Urine strep is negative. IMAGING STUDIES: Chest x-ray shows mild interval worsening with bilateral infiltrates. ASSESSMENT: 1. Acute hypoxemic respiratory failure with multifocal pneumonia suspicious for COVID 19. 2. ARDS, presumably from infectious etiology. 3. History of polysubstance abuse. The patient's urine drug screen positive for triglyceride, methamphetamine, and cannabis. 4. Opioid abuse. 5. Chronic pain syndrome. 6. For now, we will continue with the current antimicrobial coverage including cefepime and vancomycin. The patient is also started on Plaquenil since yesterday. 7. Pulmonary Medicine is on board, and we appreciate their input. TIME SPENT: Critical time spent is 45 minutes. cc: Mando Tse MD
[2019-08-28] MEDS: VANCOMYCIN 2 GM in NS 500 ML IV SCH ×2 (00:59→14:14)
[2019-08-28] MEDS: DIPRIVAN 1% 1,000 MG/100 ML BOTTLE IV SCH ×10 (01:00→23:30)
[2019-08-28] MEDS: LACRI-LUBE OPH OINT BOTH EYES SCH ×2 (03:02→14:15)
[2019-08-28] MEDS: FENTANYL 1,000 MICROGM in NS 80 ML IV SCH ×4 (03:02→23:48)
[2019-08-28] MEDS: PLAQUENIL NG SCH (03:22)
[2019-08-28] MEDS: ALBUTEROL NEB INH SCH ×6 (03:47→23:50)
[2019-08-28 04:54] LABS: ALLEN TEST YES; BLOOD TYPE ARTERIAL; HCO3-(ACT) 28.1 mmoll (20.0-26.0); METHB 1.5 % (0.0-1.5); MODALITY VENTILATOR; O2(CT) 14.6 mL/dL (15.0-23.0); O2HB 96.9 % (95.0-99.0); PCO2(98.6) 49 mmHg (35-45); PO2(98.6) 178 mmHg (60-100); SAMPLE BLOOD; SAO2 100.1 % (95.0-100.0); SRATE 24 BPM; THB 10.4 g/dL (11.5-17.4); TVOL 430 mL; pH(98.6) 7.39 (7.35-7.45)
[2019-08-28 04:56] LABS: HEMATOCRIT 30.4 % (37.0-47.0); HEMOGLOBIN 9.8 g/dL (12.0-16.0); MCH 30.1 PG (27-31); MCHC 32.2 g/dL (33-37); MCV 93.3 FL (81-99); MPV 10.3 FL (7.4-10.4); RBC 3.26 XMIL (4.2-5.4); RDW 13.7 % (11.5-14.5); WBC 5.11 X1000 (4.8-10.8)
[2019-08-28 05:24] LABS: AGAP 9; ALB/GLOB RATIO 0.9; ALBUMIN 2.3 g/dL (3.5-5.0); ALKALINE PHOSPHATASE 99 U/L (32-104); BUN 4 mg/dL (8-22); CALCIUM 7.9 mg/dL (8.8-10.2); CHLORIDE 113 mmol/L (98-107); COSMO 294; CREATININE 0.5 mg/dL (0.5-0.9); ESTIMATED GFR > 60; GLUCOSE 110 mg/dL (70-104); GOT 37 U/L (10-30); GPT 12 U/L (10-36); MAGNESIUM 2.4 mg/dL (1.5-2.7); PHOSPHORUS 1.1 mg/dL (2.7-4.5); POTASSIUM 2.6 mmol/L (3.5-5.1); SODIUM 149 mmol/L (136-145); TCO2 27 mmol/L (25-35); TOTAL BILIRUBIN 0.25 mg/dL (0.20-1.00)
[2019-08-28] MEDS ORDERED: POTASSIUM PHOSPHATE 60 MEQ in NS 250 ML IV ONE (05:34)
--- NOTE | 2019-08-28 06:59 | Diag Imaging Result Doc PS360 ---
CHEST-PORTABLE - 08/28/2019 INDICATION: respiratory failure COMPARISON: 08/27/2019 FINDINGS: Support lines and tubes are stable and in good position. There has been slight improvement in the dense infiltrate throughout the right lung. Stable hazy infiltrate throughout the left lung is well. Stable low lung volumes. Stable cardiomegaly. IMPRESSION: Mild improvement in aeration of the right lung. Electronically signed by Nahid Browning 08/28/2019 6:57 AM
[2019-08-28] MEDS: MUCOMYST 20% INH SCH ×2 (07:33→19:25)
--- NOTE | 2019-08-28 07:47 | EKG Report ---
Test Performed on : 08/28/2019 06:43:20 AM Test Reason : QTc Monitoring Blood Pressure : / mmHG Vent. Rate : 095 BPM Atrial Rate : 095 BPM P-R Int : 148 ms QRS Dur : 106 ms QT Int : 586 ms P-R-T Axes : 039 046 056 degrees QTc Int : 736 ms Critical Test Result: Long QTc Normal sinus rhythm. Cannot rule out Inferior infarct (cited on or before 26-AUG-2019) Prolonged QT Abnormal ECG When compared with ECG of 27-AUG-2019 07:12, ST no longer depressed in Inferior leads T wave inversion no longer evident in Inferior leads Confirmed by Lyric HENRY, Jairo aRe ([id number]) on 08/30/2019 9:09:57 AM
[2019-08-28] MEDS: VITAMIN B-1 NG SCH (08:32)
[2019-08-28] MEDS: DULCOLAX PR SCH ×2 (08:32→20:41)
[2019-08-28] MEDS: LAMICTAL PO SCH ×2 (08:32→20:40)
[2019-08-28] MEDS: LUVOX NG SCH ×2 (08:32→20:40)
[2019-08-28] MEDS ORDERED: LASIX IV ONE (09:16)
[2019-08-28] MEDS: MAXIPIME 1 GM in NS 50 ML IV SCH ×2 (09:31→21:01)
--- NOTE | 2019-08-28 12:10 | PROGRESS NOTE ---
DATE: 08/28/2019 SUBJECTIVE: I have seen and examined Ms. Tomas today. Ms. Tomas continues to be critically sick, and currently on fentanyl, propofol and intubated. No family member at the bedside. OBJECTIVE: Vital Signs: Blood pressure 113/55, pulse 93, respirations 24, and temperature 98.4 degrees. General: Ms. Tomas is a 24-year-old female. She is currently intubated and sedated. HEENT: Mucosa is pink and moist. Anicteric. Acyanotic. Neck: Supple. Respiratory: Air entry is bilaterally reduced. There are transmitted sounds from the ventilator. Cardiovascular: Regular rate and rhythm. No murmurs, no rubs, no gallops. Abdomen: Soft. Bowel sounds present. There is no hepatosplenomegaly. Extremities: No pedal edema. HAND OUTSIDE CUTTER: The patient is currently sedated and intubated. Pupils are equal and reactive. LABORATORY DATA: Patient's I's and O's, urine output was 1700. The patient is currently positive balance of 11,090 during the hospital course. She is currently also on tube feedings, and she is tolerating well. WBC is 5.11, hemoglobin is 9.3, and platelet count of 134,000. Chemistry is reviewed. Sodium 149, potassium 2.6, and phosphorus is 1.1. So far, blood cultures have been 5 days negative. Sputum culture has been done twice. A recent one on the of last month is negative. A chest x-ray this morning continues to show mild improvement in aeration of the lungs. CURRENT MEDICATIONS: 1. Tylenol p.r.n. 2. Dulcolax. 3. Cefepime 1 g every 12 hours. 4. Fentanyl. 5. Vancomycin. 6. Thiamine. Plaquenil has been discontinued. ASSESSMENT: 1. Acute hypoxemic respiratory failure with imaging and clinical picture consistent with ARDS of unclear etiology presumably infectious. However, massive aspiration pneumonitis is also a possibility. The patient's clinical picture was highly suspicious for COVID- 19. However, the test has been done twice, and both have come back negative. Plaquenil has been discontinue. The patient continues to be critically sick. We are going to continue with the current antimicrobial coverage for aspiration pneumonitis, and follow up with further recommendations from Pulmonary Medicine. The patient continues to be intubated. 2. History of polysubstance abuse with urine drug screen positive for amphetamines, tricyclic's, and cannabinoids as noted. 3. History of opioid use and abuse. 4. Chronic pain syndrome. 5. Electrolyte abnormality including severe hypophosphatemia and hypokalemia have been replaced. 6. Suspected refeeding syndrome manifested by severe hypophosphatemia. This will be replaced, and will continue daily replacement. PLAN: In general, Ms. Tomas continues to be critically sick. Her vitals however remain stable. She is tolerating tube feedings. We will continue with the current antimicrobial coverage. I will follow further recommendations from Pulmonary Medicine. cc: Mando Tse MD Addendum: I called and spoke with patient mother. All questions and concerns addressed. MTDD
[2019-08-28] MEDS: D5W 1,000 ML IV SCH (12:27)
[2019-08-28] MEDS: PROTONIX IV SCH (14:14)
[2019-08-28] MEDS: LOVENOX SUBQ SCH (14:15)
[2019-08-28] MEDS: SODIUM CHLORIDE 0.9% INJ SCH (14:15)
--- NOTE | 2019-08-28 16:15 | PULMONOLOGY PROGRESS NOTE ---
DATE: 08/28/2019 SUBJECTIVE: The patient is sedated. She appears to be comfortable on mechanical ventilation. OBJECTIVE: Vital Signs: Maximum temperature in the last 24 hours is 100 degrees, BP 102/47, heart rate 101, respiratory rate 20, oxygen saturation 96%. HEENT: Pupils are equal. Oropharynx appears clear. Neck is supple. Chest reveals crackles bilaterally with a predominance on the right. Cardiac Examination: S1, S2. Increased rate. Abdomen: Soft, with positive bowel sounds. Extremities are without edema. Laboratories: Chest x-ray reveals marginal improvement in aeration on the right. White blood count 5.11, hemoglobin 9.8, platelet count 134,000. Sodium 149, potassium 2.6, chloride 113, BUN 4, creatinine 0.5. Arterial blood gas reveals a pH of 7.39, pCO2 of 49, PO2 of 178. IMPRESSION: A 24-year-old with: 1. Acute hypoxemic respiratory failure. 2. Acute hypercapnic respiratory failure. 3. Bilateral pneumonia. 4. Leukopenia, thrombocytopenia, elevated C-reactive protein, elevated ferritin, elevated D- dimer, with a negative Covid-19 test x2 different lab sites. PLAN: 1. Continue isolation today but will discontinue after patient has been afebrile for 3 days. 2. Continue tube feeds. 3. Add free water in the form of D5W due to her hypernatremia. 4. Discontinue Plaquenil. 5. Wean oxygen as tolerated. Time spent in critical care management, 30 minutes. cc: Octavio Jesus MD
[2019-08-28] MEDS: LASIX IV SCH (17:38)
[2019-08-29] MEDS: VANCOMYCIN 2 GM in NS 500 ML IV SCH ×2 (01:36→13:21)
[2019-08-29] MEDS: DIPRIVAN 1% 1,000 MG/100 ML BOTTLE IV SCH ×11 (01:36→23:31)
[2019-08-29] MEDS: D5W 1,000 ML IV SCH ×2 (01:36→14:50)
[2019-08-29] MEDS: LASIX IV SCH ×2 (01:36→15:54)
[2019-08-29] MEDS: LACRI-LUBE OPH OINT BOTH EYES SCH ×2 (01:44→14:46)
[2019-08-29] MEDS: ALBUTEROL NEB INH SCH ×6 (03:30→23:40)
[2019-08-29 05:18] LABS: ALLEN TEST YES; BE 10.9 mmoll (-3.0-3.0); BLOOD TYPE ARTERIAL; HCO3-(ACT) 33.4 mmoll (20.0-26.0); METHB 1.6 % (0.0-1.5); O2(CT) 19.7 mL/dL (15.0-23.0); PO2(98.6) 141 mmHg (60-100); SAMPLE BLOOD; SAO2 99.3 % (95.0-100.0); SRATE 20 BPM; THB 14.4 g/dL (11.5-17.4); TVOL 430 mL
[2019-08-29 05:24] LABS: MODALITY VENTILATOR; PCO2(98.6) 62 mmHg (35-45)
[2019-08-29 05:43] LABS: HEMATOCRIT 31.7 % (37.0-47.0); HEMOGLOBIN 10.2 g/dL (12.0-16.0); MCH 30.5 PG (27-31); MCHC 32.2 g/dL (33-37); MCV 94.9 FL (81-99); MPV 10.1 FL (7.4-10.4); RBC 3.34 XMIL (4.2-5.4); RDW 14.1 % (11.5-14.5); WBC 7.04 X1000 (4.8-10.8)
[2019-08-29 05:53] LABS: MAGNESIUM 2.2 mg/dL (1.5-2.7); PHOSPHORUS 3.6 mg/dL (2.7-4.5)
[2019-08-29 05:59] LABS: AGAP 12; ALB/GLOB RATIO 0.8; ALBUMIN 2.4 g/dL (3.5-5.0); ALKALINE PHOSPHATASE 107 U/L (32-104); BUN 11 mg/dL (8-22); CALCIUM 7.6 mg/dL (8.8-10.2); CHLORIDE 103 mmol/L (98-107); COSMO 294; CREATININE 0.6 mg/dL (0.5-0.9); ESTIMATED GFR > 60; GLUCOSE 106 mg/dL (70-104); GOT 47 U/L (10-30); GPT 21 U/L (10-36); POTASSIUM 3.3 mmol/L (3.5-5.1); SODIUM 148 mmol/L (136-145); TCO2 33 mmol/L (25-35); TOTAL BILIRUBIN 0.25 mg/dL (0.20-1.00); TOTAL PROTEIN 5.3 g/dL (6.3-8.3)
[2019-08-29] MEDS: FENTANYL 1,000 MICROGM in NS 80 ML IV SCH ×3 (06:24→19:31)
[2019-08-29] MEDS: MERREM 1 GM in NS 50 ML IV SCH ×3 (06:24→22:37)
--- NOTE | 2019-08-29 06:40 | EKG Report ---
Test Performed on : 08/29/2019 06:29:16 AM Test Reason : QTc Monitoring Blood Pressure : / mmHG Vent. Rate : 093 BPM Atrial Rate : 093 BPM P-R Int : 140 ms QRS Dur : 098 ms QT Int : 440 ms P-R-T Axes : 042 059 065 degrees QTc Int : 547 ms Normal sinus rhythm. Cannot rule out Inferior infarct (cited on or before 26-AUG-2019) Prolonged QT Abnormal ECG When compared with ECG of 28-AUG-2019 06:43, (Unconfirmed) QT has shortened Confirmed by Lyric HENRY, Jairo Rae ([id number]) on 08/30/2019 9:10:55 AM
--- NOTE | 2019-08-29 06:50 | Diag Imaging Result Doc PS360 ---
CHEST-PORTABLE - 08/29/2019 INDICATION: respiratory failure COMPARISON: 08/28/2019 FINDINGS: Support lines and tubes are stable and in good position. There is stable heterogeneous infiltrate throughout the right lung. No new infiltrates. Heart size remains normal. No large pleural effusion. IMPRESSION: No change from prior. Electronically signed by Nahid Browning 08/29/2019 6:48 AM
[2019-08-29] MEDS: MUCOMYST 20% INH SCH ×2 (08:10→21:00)
[2019-08-29] MEDS ORDERED: POTASSIUM CHLORIDE 20% LIQUID NG ONE (08:22)
[2019-08-29] MEDS: DULCOLAX PR SCH ×2 (08:34→20:26)
[2019-08-29] MEDS: LUVOX NG SCH ×2 (08:34→20:27)
[2019-08-29] MEDS: LAMICTAL PO SCH ×2 (08:34→20:27)
[2019-08-29] MEDS: VITAMIN B-1 NG SCH (08:34)
[2019-08-29] MEDS: MORPHINE IV PRN (09:14)
[2019-08-29] MEDS: ATIVAN IV PRN (09:15)
--- NOTE | 2019-08-29 11:26 | PROGRESS NOTE ---
DATE: 08/29/2019 SUBJECTIVE: Seen and examined Ms. Tomas today. Ms. Tomas continues to be extremely critical under the ventilator and sedation. She was evaluated early on today by Pulmonary Medicine. According to the attending nurse, whenever Ms. Tomas is off sedation, she is awake and she is very agitated, moving all extremities. OBJECTIVELY: Vital Signs: Currently, blood pressure is 107/52, pulse of 97, respirations 21, temperature is 97.7 degrees. The patient did have some elevation in temperature yesterday and early this morning. General: Ms. Tomas is a 24-year-old obese female. She is in bed in no distress. HEENT: Mucosa is pink and moist. Anicteric. Acyanotic. Neck: Supple. Chest: Air entry is bilaterally reduced. There are transmitted sounds from the ventilator. Cardiovascular: Regular rate and rhythm. No murmurs. Abdomen: Soft, distended. No hepatosplenomegaly. Extremities: No pedal edema. LABORATORY MANAGER: Patient is currently intubated and sedated on propofol. Pupils are reactive. I'S AND O'S: Urine output 5900, currently positive balance of 11,203. IMAGING STUDIES: A chest x-ray this morning shows stable heterogeneous infiltrates throughout the right lung. No new infiltrates. LABORATORY DATA: WBC is 7.04, hemoglobin is 10.2, platelet count of 195,000. Chemistry is also reviewed, unremarkable except for mild elevation in sodium and potassium is 3.3. Procalcitonin is slightly elevated. So far, blood cultures have all been negative. A sputum culture has been repeated this morning. MEDICATIONS: Have all been reviewed. I have discontinued the cefepime and switched this to meropenem today because the patient continues to spike in temp. I am concerned if she is developing ESBL pathogen, especially in the lung, so we have changed the antibiotics. ASSESSMENT: 1. Acute hypoxemic respiratory failure with imaging consistent with ARDS. The patient continues to be intubated. Covid-19 serology has been done twice and it's both negative. We presume at this point this is probably a massive aspiration pneumonitis. We are going to continue with the current vancomycin, antibiotics, cefepime has been switched to meropenem for extended spectrum beta-lactamase coverage as well. 2. History of polysubstance abuse. Urine drug screening was positive for amphetamine, tricyclics and cannabinoids. 3. History of opioid use and abuse due to chronic pain syndrome. 4. Hypophosphatemia, replaced. 5. Hypernatremia. Patient is on D5 water. In general, Ms. Tomas remains fairly the same, extremely critical. She is still on 60% of FiO2 with a rate of 20, tidal volume of 430, PEEP of 12, AC mode. We will continue with the current antimicrobial coverage. She remains up to last night febrile, so I have made a change to her antibiotics to meropenem. We will follow up with further recommendations from Pulmonary Medicine. cc: Mando Tse MD MTDD
[2019-08-29] MEDS: LOVENOX SUBQ SCH (14:46)
[2019-08-29] MEDS: PROTONIX IV SCH (15:45)
--- NOTE | 2019-08-29 19:32 | PULMONOLOGY PROGRESS NOTE ---
DATE: 08/29/2019 SUBJECTIVE: The patient is arousable. She will intermittently interact with the examiner. OBJECTIVE: Vital Signs: Maximum temperature in the last 24 hours is 100.0 degrees, blood pressure 111/56, heart rate 105, respiratory rate 16, oxygen saturation 96%. HEENT: Pupils are equal and reactive. Oropharynx appears clear. Neck: Supple. Chest: Reveals scattered rhonchi bilaterally. Cardiac exam: S1, S2. Abdomen: Obese and soft. Extremities: Without edema. IMAGING: Chest x-ray reveals right greater than left infiltrate. LABORATORY DATA: Arterial blood gas reveals a pH of 7.40, pCO2 of 62, pO2 of 141. Sodium 148, potassium 3.3, chloride 103 bicarbonate 33, BUN 11, creatinine 0.6. White blood count 7.04, hemoglobin 10.0, platelet count 195,000. IMPRESSION: A 24-year-old with: 1. Acute hypoxemic respiratory failure. 2. Acute hypercapnic respiratory failure. 3. Acute respiratory distress syndrome. 4. Leukopenia, thrombocytopenia, elevated C-reactive protein, elevated D-dimer and elevated ferritin. The patient had two negative tests for Coronavirus Disease 2018. DISCUSSION: A 24-year-old with problems outlined above. Her clinical presentation was very consistent with COVID-19. She had fluctuating fevers along with an acute and rapid decline in respiratory status. She has had significant leukopenia with relative low white count. She has had two negative COVID-19 tests, which is encouraging; however, the best data I can find is that two negative tests have a sensitivity of about 86%. Because her clinical picture is so consistent with COVID-19 would recommend continuing to practice isolation. The patient remains on significant Diprivan and fentanyl dosing. PLAN: 1. Continue isolation for COVID-19, but we will consider discontinuation if her temperature comes down and remains low. 2. Continue tube feeds. 3. Continue free water. 4. Anticipate the need to taper fentanyl over 6 to 8 days once her oxygen requirements have decreased to less than or equal to 50%. TIME SPENT IN CRITICAL CARE MANAGEMENT: 35 minutes. cc: Octavio Jesus MD
[2019-08-30] MEDS: VANCOMYCIN 2 GM in NS 500 ML IV SCH ×2 (00:10→14:40)
[2019-08-30] MEDS: FENTANYL 1,000 MICROGM in NS 80 ML IV SCH ×4 (01:55→22:49)
[2019-08-30] MEDS: DIPRIVAN 1% 1,000 MG/100 ML BOTTLE IV SCH ×12 (01:55→22:33)
[2019-08-30] MEDS: LACRI-LUBE OPH OINT BOTH EYES SCH ×2 (03:09→14:42)
[2019-08-30] MEDS: LASIX IV SCH ×2 (03:10→15:49)
[2019-08-30] MEDS: ALBUTEROL NEB INH SCH ×6 (03:40→23:45)
[2019-08-30 05:00] LABS: ALLEN TEST YES; BE 18.8 mmoll (-3.0-3.0); BLOOD TYPE ARTERIAL; HCO3-(ACT) 39.6 mmoll (20.0-26.0); METHB 1.5 % (0.0-1.5); O2(CT) 15.7 mL/dL (15.0-23.0); O2HB 96.2 % (95.0-99.0); PO2(98.6) 134 mmHg (60-100); SAMPLE BLOOD; SAO2 99.1 % (95.0-100.0); SRATE 16 BPM; THB 11.4 g/dL (11.5-17.4); TVOL 480 mL; pH(98.6) 7.44 (7.35-7.45)
[2019-08-30 05:09] LABS: MODALITY VENTILATOR; PCO2(98.6) 68 mmHg (35-45)
[2019-08-30] MEDS: MERREM 1 GM in NS 50 ML IV SCH ×3 (05:39→21:54)
[2019-08-30] MEDS: D5W 1,000 ML IV SCH ×3 (05:40→18:29)
[2019-08-30 06:23] LABS: HEMATOCRIT 34.9 % (37.0-47.0); HEMOGLOBIN 11.1 g/dL (12.0-16.0); MCH 30.4 PG (27-31); MCHC 31.8 g/dL (33-37); MCV 95.6 FL (81-99); MPV 10.1 FL (7.4-10.4); RBC 3.65 XMIL (4.2-5.4); RDW 13.6 % (11.5-14.5); WBC 8.24 X1000 (4.8-10.8)
--- NOTE | 2019-08-30 06:44 | Diag Imaging Result Doc PS360 ---
EXAM: CHEST-PORTABLE INDICATION: respiratory failure TECHNIQUE: One view COMPARISON: 08/29/2019 FINDINGS: The ET tube tip is just barely past the thoracic inlet but it is stable. Consider advancing 2 to 3 cm. The left central line in NG tube are in stable positions. Heterogeneous infiltrate throughout the right lung is approximately stable. No new consolidation is identified. Cardiac silhouette is stable. IMPRESSION: ET tube tip just distal to the thoracic inlet but similar to the previous study. Stable chest, otherwise. Electronically signed by Fletcher Marrero 08/30/2019 6:42 AM
[2019-08-30 06:55] LABS: AGAP 9; ALB/GLOB RATIO 0.6; ALBUMIN 2.4 g/dL (3.5-5.0); ALKALINE PHOSPHATASE 137 U/L (32-104); BUN 11 mg/dL (8-22); CALCIUM 8.5 mg/dL (8.8-10.2); CHLORIDE 98 mmol/L (98-107); COSMO 287; CREATININE 0.5 mg/dL (0.5-0.9); ESTIMATED GFR > 60; GLUCOSE 116 mg/dL (70-104); GOT 38 U/L (10-30); GPT 20 U/L (10-36); POTASSIUM 3.6 mmol/L (3.5-5.1); SODIUM 144 mmol/L (136-145); TCO2 37 mmol/L (25-35); TOTAL BILIRUBIN 0.27 mg/dL (0.20-1.00); TOTAL PROTEIN 6.1 g/dL (6.3-8.3)
[2019-08-30] MEDS: DULCOLAX PR SCH ×2 (08:01→20:04)
[2019-08-30] MEDS: LUVOX NG SCH ×2 (08:01→20:03)
[2019-08-30] MEDS: LAMICTAL PO SCH ×2 (08:01→20:04)
[2019-08-30] MEDS: VITAMIN B-1 NG SCH (08:01)
[2019-08-30] MEDS: MUCOMYST 20% INH SCH ×2 (08:19→20:05)
[2019-08-30] MEDS: ATIVAN IV PRN (12:45)
--- NOTE | 2019-08-30 13:36 | PROGRESS NOTE ---
DATE: 08/30/2019 SUBJECTIVE: I have seen and examined Ms. Tomas today. Her attending nurse was at the bedside at the time of the encounter. I understand Ms. Tomas went through breathing trial but then she became more agitated, so she had to be put back on full mechanical ventilation. OBJECTIVE: Vital signs: Blood pressure is 137/72, pulse of 115, respirations 20, temperature is 98.8 degrees. General: Ms. Tomas is a 24-year-old female. She is intubated and sedated. HEENT: Mucosa is pink and moist. Anicteric. Acyanotic. Neck: Supple. Respiratory: There is good air entry bilateral. Some transmitted sound from the ventilator is noted. Cardiovascular: Regular rate and rhythm. No murmurs, no rubs, no gallops. Gastrointestinal: Abdomen is soft, distended. No hepatosplenomegaly. Bowel sounds are present. Extremities: No pedal edema. Central nervous system: Patient is intubated and sedated on propofol. She will, however, try to withdraw from pain. Pupils are equal and they are reactive. LABORATORY DATA: WBC of 8.24, hemoglobin 11.1, platelet count of 271,000. ABG results have also been noted. Chemistry is reviewed. MICROBIOLOGY: A repeat sputum culture has come back no growth. IMAGING: A chest x-ray this morning shows stable findings. MEDICATIONS: Have all been reviewed, no changes. Today is day 1 on meropenem. ASSESSMENT AND PLAN: 1. Acute hypoxemic respiratory failure due to acute respiratory distress syndrome of unknown etiology. The patient's Coronavirus Disease 2019 serology has been negative. This is presumed aspiration pneumonitis. We are going to continue with the current antimicrobial coverage and follow up with further recommendations from Pulmonary Medicine. 2. History of polysubstance abuse. Urine drug screen was positive for amphetamine, tricyclics and cannabinoids. 3. History of opioid use and abuse due to chronic pain syndrome. 4. Hypernatremia, resolved. 5. Hypophosphatemia, improved. 6. Nutritional support. Patient continues to be tolerating her tube feedings. We will also continue with the deep venous thrombosis prophylaxis and gastrointestinal prophylaxis. cc: Mando Tse MD [facility] HOSPITALJazmin
[2019-08-30] MEDS: PROTONIX IV SCH (14:42)
[2019-08-30] MEDS: LOVENOX SUBQ SCH (14:42)
[2019-08-31] MEDS: VANCOMYCIN 2 GM in NS 500 ML IV SCH ×2 (00:17→14:00)
[2019-08-31] MEDS: DIPRIVAN 1% 1,000 MG/100 ML BOTTLE IV SCH ×12 (00:37→23:30)
[2019-08-31] MEDS: MORPHINE IV PRN (00:48)
[2019-08-31] MEDS: LASIX IV SCH ×2 (03:04→16:18)
[2019-08-31] MEDS: LACRI-LUBE OPH OINT BOTH EYES SCH ×2 (03:05→14:03)
[2019-08-31] MEDS: ALBUTEROL NEB INH SCH ×6 (03:10→23:20)
[2019-08-31 04:51] LABS: HEMATOCRIT 34.6 % (37.0-47.0); HEMOGLOBIN 11.2 g/dL (12.0-16.0); MCH 30.3 PG (27-31); MCHC 32.4 g/dL (33-37); MCV 93.5 FL (81-99); MPV 10.2 FL (7.4-10.4); RBC 3.7 XMIL (4.2-5.4); RDW 12.9 % (11.5-14.5); WBC 9.43 X1000 (4.8-10.8)
[2019-08-31 04:53] LABS: ALLEN TEST YES; BE 17.6 mmoll (-3.0-3.0); BLOOD TYPE ARTERIAL; HCO3-(ACT) 38.6 mmoll (20.0-26.0); METHB 1.3 % (0.0-1.5); O2(CT) 16.1 mL/dL (15.0-23.0); O2HB 95.4 % (95.0-99.0); PO2(98.6) 90 mmHg (60-100); SAMPLE BLOOD; SAO2 98.4 % (95.0-100.0); SRATE 16 BPM; THB 11.9 g/dL (11.5-17.4); TVOL 480 mL; pH(98.6) 7.42 (7.35-7.45)
[2019-08-31 04:59] LABS: MODALITY VENTILATOR; PCO2(98.6) 70 mmHg (35-45)
[2019-08-31 05:02] LABS: AGAP 8; ALB/GLOB RATIO 0.7; ALBUMIN 2.6 g/dL (3.5-5.0); ALKALINE PHOSPHATASE 261 U/L (32-104); BUN 14 mg/dL (8-22); CALCIUM 8.7 mg/dL (8.8-10.2); CHLORIDE 96 mmol/L (98-107); COSMO 287; CREATININE 0.5 mg/dL (0.5-0.9); ESTIMATED GFR > 60; GLUCOSE 127 mg/dL (70-104); GOT 46 U/L (10-30); GPT 27 U/L (10-36); POTASSIUM 3.6 mmol/L (3.5-5.1); SODIUM 143 mmol/L (136-145); TCO2 39 mmol/L (25-35); TOTAL PROTEIN 6.1 g/dL (6.3-8.3)
[2019-08-31] MEDS: FENTANYL 1,000 MICROGM in NS 80 ML IV SCH (05:32)
[2019-08-31] MEDS: MERREM 1 GM in NS 50 ML IV SCH ×3 (05:49→20:23)
[2019-08-31] MEDS: D5W 1,000 ML IV SCH ×2 (06:53→23:22)
--- NOTE | 2019-08-31 07:45 | Diag Imaging Result Doc PS360 ---
CHEST-PORTABLE - 08/31/2019 INDICATION: respiratory failure COMPARISON: 08/30/2019 FINDINGS: Support lines and tubes are stable and in good position. Stable dense infiltrate throughout the right lung. Stable severely low lung volumes. Heart size remains borderline. Stable pulmonary vascular congestion. IMPRESSION: No complication or change from prior. Electronically signed by Nahid Browning 08/31/2019 7:43 AM
[2019-08-31] MEDS: VITAMIN B-1 NG SCH (08:02)
[2019-08-31] MEDS: LUVOX NG SCH ×2 (08:02→20:16)
[2019-08-31] MEDS: LAMICTAL PO SCH ×2 (08:02→20:16)
[2019-08-31] MEDS: DULCOLAX PR SCH ×2 (08:02→20:16)
[2019-08-31] MEDS: MUCOMYST 20% INH SCH ×2 (08:36→20:35)
--- NOTE | 2019-08-31 11:39 | PROGRESS NOTE ---
DATE: 08/31/2019 SUBJECTIVE: I have seen and examined Ms. Tomas today. Ms. Tomas failed her breathing trial again this morning. I understand she became extremely tachycardic, hypertensive, respiratory rate went higher, so she is back on full mechanical ventilation. OBJECTIVE: Vital signs: Blood pressure is 116/66, pulse of 99, respiration is 16, temperature is 98.1 degrees. The patient has not had any more elevation in temperatures since yesterday. General: Ms. Tomas is a 24-year-old, female. She is in bed, currently intubated and sedated on propofol. HEENT: Mucosa is pink and moist. Anicteric. Acyanotic. Neck: Supple. Chest: Air entry was bilaterally reduced. Some transmitted sounds from the ventilator. Cardiovascular: Regular rate and rhythm. No murmurs, no rubs, no gallops. GI: Abdomen was soft, nondistended. No hepatosplenomegaly. Extremities: No pedal edema. JOURNEYMAN PLUMBER: Patient continues to be intubated and sedated. Her pupils are equal and they are reactive. The patient will move extremities to painful stimulation, especially actively on the right side. She has minimum swelling on the left upper extremity. The patient has a left subclavian central line noted. Intake and Output: Urine output was 4765. She is currently still positive balance of 14,000. LABORATORY DATA: WBC is 9.43, hemoglobin is 11.2, platelet count of 267,000. ABGs: PCO2 was 70 this morning on a rate of 16. The patient's other laboratory data have all been reviewed. No changes. No new microbiology data. MEDICATIONS: Have all been reviewed and no changes. The patient is currently on meropenem, today is day 2, vancomycin per pharmacy protocol, today is day 7 on that. ASSESSMENT: 1. Acute hypoxemic respiratory failure due to acute respiratory distress syndrome of unknown etiology. The patient continues to be on mechanical ventilation. 2. Acute hypercarbic respiratory failure. The patient is currently on mechanical ventilation, pCO2 is slightly elevated. I think the respiratory rate will need to be adjusted, however, we will wait for Pulmonary Medicine to evaluate her and make the necessary changes. 3. Bilateral multifocal pneumonia, questionable for aspiration pneumonitis and also concern for Coronavirus Disease 2019, however patient's Coronavirus Disease 2019 serologies have been done twice, both have come back negative. We will continue with the current antimicrobial coverage. White cell count has been stable and the patient has not been febrile. 4. History of polysubstance abuse with urine drug screening positive for amphetamine, tricyclics, and cannabinoids. 5. History of opioid use and abuse due to chronic pain syndrome. 6. Hypernatremia, improved. 7. Hypophosphatemia, improved. 8. Nutritional support. Patient continues to tolerate well her tube feedings. 9. Deep venous thrombosis prophylaxis with Lovenox and gastrointestinal stress prophylaxis with pantoprazole noted. cc: Mando Tse MD
[2019-08-31] MEDS: HALDOL IV PRN ×2 (11:52→19:09)
[2019-08-31] MEDS: PROTONIX IV SCH (14:01)
[2019-08-31] MEDS: LOVENOX SUBQ SCH (14:02)
--- NOTE | 2019-08-31 14:20 | PROGRESS NOTE ---
DATE: 08/31/2019 SUBJECTIVE: The patient is intubated in bed on assist-control ventilation in intensive care unit on critical care monitoring. OBJECTIVE: Vital Signs: Were seen. She is currently afebrile x48 hours. Head and Neck: Trachea midline. ET tube is in place. Chest: Bilateral crackles. Cardiac: S1, S2. Abdomen: Nontender. Extremities: No pedal edema. Neurologic: Sedated. LABORATORY DATA AND INVESTIGATIONS: CMP and CBC noted. Creatinine is 0.5. WBC is 9.43. ABG is seen, pH is 7.42, pCO2 of 70, PO2 of 90. Assist control of 16, FiO2 50%, tidal volume 418, PEEP of 5. Chest x-ray from 08/31/2019 was seen. ASSESSMENT AND PLAN: A 24-year-old female with: 1. ARDS and acute respiratory failure and hypoxia. 2. Pneumonia and ARDS. 3. Coronavirus Disease 19 is suspected. She is negative x2, and the plan was to give her fever free 3 days before DC isolation. 4. We attempted weaning trials today and she failed. 5. I did discuss the condition with her mother. 6. We are titrating assist-control ventilation settings per the patient needs and adjusting accordingly per clinical protocols and we will monitor closely. 7. Continue sedation with and we are titrating and adjusting according to the patient needs. TIME SPENT: Critical care time is 33 minutes. cc: Yulisa Dhaliwal MD
[2019-08-31] MEDS ORDERED: CALMOSEPTINE OINTMENT TOP PRN (17:00)
[2019-09-01] MEDS: DIPRIVAN 1% 1,000 MG/100 ML BOTTLE IV SCH ×4 (02:17→08:52)
[2019-09-01] MEDS: LASIX IV SCH ×2 (02:17→14:46)
[2019-09-01] MEDS: VANCOMYCIN 2 GM in NS 500 ML IV SCH ×2 (02:18→12:40)
[2019-09-01] MEDS: LACRI-LUBE OPH OINT BOTH EYES SCH ×2 (02:18→14:45)
[2019-09-01] MEDS: MORPHINE IV PRN ×2 (02:19→09:45)
[2019-09-01] MEDS: HALDOL IV PRN ×4 (02:19→22:08)
[2019-09-01] MEDS: MERREM 1 GM in NS 50 ML IV SCH ×3 (02:20→21:16)
[2019-09-01] MEDS: ALBUTEROL NEB INH SCH ×6 (04:21→23:20)
[2019-09-01 05:29] LABS: ALLEN TEST YES; BE 14.5 mmoll (-3.0-3.0); BLOOD TYPE ARTERIAL; HCO3-(ACT) 36.2 mmoll (20.0-26.0); METHB 1.2 % (0.0-1.5); O2(CT) 16.1 mL/dL (15.0-23.0); O2HB 96.2 % (95.0-99.0); PO2(98.6) 105 mmHg (60-100); SAMPLE BLOOD; SAO2 99.1 % (95.0-100.0); SRATE 16 BPM; THB 11.8 g/dL (11.5-17.4); TVOL 480 mL; pH(98.6) 7.48 (7.35-7.45)
[2019-09-01 05:30] LABS: MODALITY VENTILATOR; PCO2(98.6) 54 mmHg (35-45)
[2019-09-01 06:42] LABS: HEMATOCRIT 34.1 % (37.0-47.0); HEMOGLOBIN 11.2 g/dL (12.0-16.0); MCH 30.6 PG (27-31); MCHC 32.8 g/dL (33-37); MCV 93.2 FL (81-99); MPV 10.1 FL (7.4-10.4); RBC 3.66 XMIL (4.2-5.4); RDW 12.8 % (11.5-14.5); WBC 10.38 X1000 (4.8-10.8)
[2019-09-01 07:16] LABS: AGAP 10; ALB/GLOB RATIO 0.8; ALBUMIN 2.8 g/dL (3.5-5.0); ALKALINE PHOSPHATASE 360 U/L (32-104); BUN 16 mg/dL (8-22); CALCIUM 9.2 mg/dL (8.8-10.2); CHLORIDE 91 mmol/L (98-107); COSMO 275; CREATININE 0.5 mg/dL (0.5-0.9); ESTIMATED GFR > 60; GLUCOSE 100 mg/dL (70-104); GOT 50 U/L (10-30); GPT 34 U/L (10-36); POTASSIUM 3.8 mmol/L (3.5-5.1); SODIUM 137 mmol/L (136-145); TCO2 36 mmol/L (25-35); TOTAL BILIRUBIN 0.29 mg/dL (0.20-1.00); TOTAL PROTEIN 6.3 g/dL (6.3-8.3)
[2019-09-01] MEDS: VITAMIN B-1 NG SCH (08:13)
[2019-09-01] MEDS: LAMICTAL PO SCH ×2 (08:13→21:19)
[2019-09-01] MEDS: LUVOX NG SCH ×2 (08:13→21:19)
[2019-09-01] MEDS: DULCOLAX PR SCH ×2 (08:13→21:16)
--- NOTE | 2019-09-01 08:23 | Diag Imaging Result Doc PS360 ---
CHEST-PORTABLE - 09/01/2019 INDICATION: respiratory failure COMPARISON: 08/31/2019 FINDINGS: Support lines and tubes are stable. Stable dense infiltrate throughout the right lung. Stable hazy infiltrate at the left lung base. Stable severely low lung volumes. Heart size remains top normal. IMPRESSION: No change from prior. Electronically signed by Nahid Browning 09/01/2019 8:21 AM
[2019-09-01] MEDS: MUCOMYST 20% INH SCH ×2 (08:55→19:53)
[2019-09-01] MEDS ORDERED: LASIX IV ONE (09:45)
[2019-09-01] MEDS: D5W 1,000 ML IV SCH ×2 (09:58→18:44)
[2019-09-01] MEDS: PRECEDEX 200 MICROGM in NS 48 ML IV SCH ×6 (10:15→23:02)
[2019-09-01 11:55] LABS: ALLEN TEST NO; BE 17.4 mmoll (-3.0-3.0); BLOOD TYPE ARTERIAL; HCO3-(ACT) 38.5 mmoll (20.0-26.0); METHB 1.4 % (0.0-1.5); O2HB 95.5 % (95.0-99.0); PO2(98.6) 88 mmHg (60-100); SAMPLE BLOOD; SAO2 98.8 % (95.0-100.0); THB 12.6 g/dL (11.5-17.4); pH(98.6) 7.51 (7.35-7.45)
[2019-09-01 11:58] LABS: PCO2(98.6) 54 mmHg (35-45)
[2019-09-01 11:59] LABS: MODALITY VENTILATOR
--- NOTE | 2019-09-01 13:03 | PROGRESS NOTE ---
DATE: 09/01/2019 SUBJECTIVE: I have seen and examined Ms. Tomas today. Ms. Tomas continues to be intubated. No major changes overnight per the nursing staff. She continues to tolerate well the ventilator. She has been afebrile. OBJECTIVE: Vital signs: Blood pressure is 136/69, pulse of 104, respirations 16, temperature is 98.1 degrees. General: Ms. Tomas is a 24-year-old female. she is in bed no distress. HEENT: Mucosa is pink and moist. Anicteric. Acyanotic. Neck: Supple. Chest: Air entry was bilaterally reduced. Some transmitted sounds from the ventilator. Cardiovascular: Regular rate and rhythm. No murmurs, no rubs, no gallops. GI: Abdomen soft, distended. No hepatosplenomegaly. Bowel sounds present. Extremities: No pedal edema. CHEF DE CUISINE: Patient continues to be intubated and sedated on propofol. She will withdraw to painful stimulation. LABORATORY: The patient's intake and output: Urine output was 4300. She is currently positive balance of 15,561. Laboratory data has also been reviewed. CBC continues to be unremarkable. Chemistry also unremarkable. AST minimally elevated, ALT is normal. MEDICATIONS: Have all been reviewed. No changes at this point. ASSESSMENT: 1. Acute hypoxemic respiratory failure due to acute respiratory distress syndrome (ARDS). Etiology is still unknown. Patient continues to be on mechanical ventilation. 2. Acute hypoxemic respiratory failure. 3. Bilateral multifocal pneumonia questionable for aspiration pneumonitis. We will continue with the current antimicrobial coverage. White cell count is normalized. There is also concern that the patient could have Coronavirus Disease 2019 (COVID 19). However, 2 serology tests have been negative. 4. History of polysubstance abuse with urine drug screen positive for amphetamine, tricyclics and cannabinoids. 5. History of opioid use and abuse due to chronic pain syndrome. 6. Hypernatremia, resolved. We will discontinue patient's D5. 7. Mild left upper extremity swelling. We will get a Doppler ultrasound of the left upper extremity to rule out any deep vein thrombosis. Of note, Ms. Tomas is on prophylactic Lovenox. cc: Mando Tse MD
[2019-09-01] MEDS: PROTONIX IV SCH (14:40)
[2019-09-01] MEDS: LOVENOX SUBQ SCH (14:41)
--- NOTE | 2019-09-01 14:49 | PROGRESS NOTE ---
DATE: 09/01/2019 SUBJECTIVE: She is intubated in bed on assist-control ventilation on monitors in the intensive care unit. OBJECTIVE: Vital signs: Seen. She is afebrile times more than 72 hours. Head and neck: Trachea midline. ET tube is in place. Chest: Reduced entry and few crackles, improved. Cardiac: S1, S2. Abdomen: Nontender. Lower extremities: No pedal edema. Neurologic: She is sedated with Precedex but responsive. We did change the sedation today from Diprivan to Precedex. LABS AND INVESTIGATIONS: CBC, CMP, chest x-ray, ABGs, seen with creatinine 0.5, WBCs 10.38, platelets 444, PH 7.51, pCO2 of 54, and PO2 is 88. This is on a weaning trial, spontaneous breathing trial. Earlier today the PH was 7.48, pCO2 54, PO2 105. Chest x-ray from today was reviewed, and it showed no change from prior. ASSESSMENT AND PLAN: 24-year-old female with: 1. Acute respiratory distress syndrome, acute respiratory failure and hypoxia. Today she tolerated weaning trials, and we adjusted her vent settings with weaning trial, spontaneous breathing trial more; we will monitor her oxygenation and blood gases, and with noticed improvement and tolerance for the weaning trial, so we are extubating. 2. Continue antibiotics and monitor closely the clinical and lab responses. 3. She tested Coronavirus Disease 2019 negative and has been afebrile for 3 days, and we discontinued isolation. CRITICAL CARE TIME: 35 minutes. cc: Yulisa Dhaliwal MD MTDD
[2019-09-01 16:31] LABS: ALLEN TEST YES; BE 12.2 mmoll (-3.0-3.0); BLOOD TYPE ARTERIAL; HCO3-(ACT) 34.4 mmoll (20.0-26.0); METHB 1.5 % (0.0-1.5); O2(CT) 16.5 mL/dL (15.0-23.0); O2HB 93.8 % (95.0-99.0); PCO2(98.6) 49 mmHg (35-45); PO2(98.6) 74 mmHg (60-100); SAMPLE BLOOD; THB 12.5 g/dL (11.5-17.4); pH(98.6) 7.49 (7.35-7.45)
[2019-09-01 16:32] LABS: MODALITY COOL AEROSOL
[2019-09-02] MEDS: VANCOMYCIN 2 GM in NS 500 ML IV SCH ×2 (00:04→14:00)
[2019-09-02] MEDS: PRECEDEX 200 MICROGM in NS 48 ML IV SCH ×5 (01:26→09:15)
[2019-09-02] MEDS: LACRI-LUBE OPH OINT BOTH EYES SCH ×2 (02:59→14:13)
[2019-09-02] MEDS: LASIX IV SCH (02:59)
[2019-09-02] MEDS: ALBUTEROL NEB INH SCH ×6 (03:17→23:31)
[2019-09-02 05:02] LABS: ALLEN TEST YES; BE 11.3 mmoll (-3.0-3.0); BLOOD TYPE ARTERIAL; HCO3-(ACT) 33.7 mmoll (20.0-26.0); METHB 1.3 % (0.0-1.5); O2HB 96.6 % (95.0-99.0); PCO2(98.6) 46 mmHg (35-45); PO2(98.6) 149 mmHg (60-100); SAMPLE BLOOD; SAO2 99.6 % (95.0-100.0); THB 12.3 g/dL (11.5-17.4)
[2019-09-02 05:03] LABS: MODALITY BI PAP
[2019-09-02] MEDS: MERREM 1 GM in NS 50 ML IV SCH ×3 (05:14→21:46)
--- NOTE | 2019-09-02 06:10 | Diag Imaging Result Doc PS360 ---
EXAM: CHEST-PORTABLE HISTORY: respiratory failure TECHNIQUE: Single view COMPARISON: 09/01/2019 FINDINGS: The endotracheal tube has been removed and the nasogastric tube has been removed. No change in the left subclavian catheter. The lung infiltrates are less prominent. The heart remains enlarged. Questionable tiny pleural effusions. IMPRESSION: Interval improvement Electronically signed by Renan Daily 09/02/2019 6:08 AM
[2019-09-02 06:49] LABS: HEMATOCRIT 35.1 % (37.0-47.0); HEMOGLOBIN 11.9 g/dL (12.0-16.0); MCH 30.5 PG (27-31); MCHC 33.9 g/dL (33-37); MPV 10.2 FL (7.4-10.4); RBC 3.9 XMIL (4.2-5.4); RDW 12.7 % (11.5-14.5); WBC 13.1 X1000 (4.8-10.8)
[2019-09-02 07:16] LABS: AGAP 14; ALB/GLOB RATIO 0.8; ALBUMIN 3.1 g/dL (3.5-5.0); ALKALINE PHOSPHATASE 304 U/L (32-104); BUN 22 mg/dL (8-22); CALCIUM 9.2 mg/dL (8.8-10.2); CHLORIDE 91 mmol/L (98-107); COSMO 278; CREATININE 0.5 mg/dL (0.5-0.9); ESTIMATED GFR > 60; GLUCOSE 113 mg/dL (70-104); GOT 34 U/L (10-30); GPT 27 U/L (10-36); POTASSIUM 3.3 mmol/L (3.5-5.1); SODIUM 137 mmol/L (136-145); TCO2 32 mmol/L (25-35); TOTAL BILIRUBIN 0.38 mg/dL (0.20-1.00); TOTAL PROTEIN 7.1 g/dL (6.3-8.3)
[2019-09-02] MEDS: MUCOMYST 20% INH SCH ×2 (08:14→19:33)
[2019-09-02] MEDS: DULCOLAX PR SCH ×2 (09:15→21:44)
[2019-09-02] MEDS: D5W 1,000 ML IV SCH (09:24)
[2019-09-02] MEDS: POTASSIUM CHLORIDE 20 MEQ/SWI 20 MEQ/100 ML IVPB IV SCH ×2 (09:31→10:48)
[2019-09-02] MEDS: LAMICTAL PO SCH ×2 (10:52→21:46)
[2019-09-02] MEDS: LUVOX NG SCH ×2 (10:52→21:46)
[2019-09-02] MEDS: VITAMIN B-1 NG SCH (10:53)
[2019-09-02] MEDS ORDERED: MORPHINE IV PRN (12:05)
--- NOTE | 2019-09-02 12:34 | PROGRESS NOTE ---
DATE: 09/02/2019 SUBJECTIVE: I have seen and examined Ms. Tomas today. Ms. Tomas refers to be doing a lot better. She was successfully extubated yesterday, transitioned to BiPAP. This morning, she was on a Venturi mask. OBJECTIVE: Vital Signs: Blood pressure is 113/56, pulse of 93, respirations of 30. The patient was saturating 94% on a Venturi mask. General Examination: Ms. Tomas is a 24-year-old, female. She is in bed. She was not in any cardiopulmonary distress. HEENT: Mucosa is pink and moist. Anicteric. Acyanotic. Neck: Supple. There was no JVD. Respiratory System: Air entry was bilaterally reduced. There is still diffuse rhonchi in both lung chinchilla. Cardiovascular: Regular rate and rhythm. No murmurs, no rubs, no gallops. GI: Abdomen was soft, nontender. Bowel sounds present. There was no hepatosplenomegaly. Extremities: No pedal edema. The left upper extremity continues to be swollen and the left subclavian central line is still in place. WHITEWASHER: The patient is awake and alert. She is able to follow basic commands for me. Is and Os: Urine output was 4200. She is still currently positive balance of over 15,000 during the hospital course. WBC is 13.10, hemoglobin is 11.9, platelet count of 539,000. Chemistry is also reviewed. Potassium is 3.3. Rest of chemistry is unremarkable. Current medications have all been reviewed. Patient continues to be on meropenem and vancomycin as antimicrobials. Diagnostic Studies: A chest x-ray this morning shows interval improvement. ASSESSMENT: 1. Acute hypoxemic respiratory failure secondary to acute respiratory distress syndrome of unclear etiology, presumably from aspiration pneumonitis. The patient was on mechanical ventilation for 8 days, was successfully extubated yesterday, and she seems to be tolerating it well. She is transitioned to a Venturi mask. We are going to continue to monitor. 2. Bilateral multifocal pneumonia, suspicious for aspiration pneumonitis. The patient is on antimicrobial coverage including vancomycin and meropenem. There was also a suspicion for Covid-19. However, the PCR test has been done twice and has been negative. 3. History of polysubstance abuse with a urine drug screen positive for amphetamine, tricyclics, and cannabinoids. 4. History of opioid use and abuse due to chronic pain syndrome. 5. Hypernatremia, resolved. 6. Left upper extremity swelling. A venous Doppler is positive for a deep venous thrombosis. We are going to start Ms. Tomas on full anticoagulation with Lovenox and remove the central line catheter. PLAN: In general, I think Ms. Tomas is doing well. She was successfully extubated yesterday. She is currently on a Venturi mask and we are going to continue to titrate as needed. We are going to get a swallow evaluation on her today. If she does well, we will start her on a diet. We are still going to observe Ms. Tomas today in the Critical Care Unit and hopefully transfer her out in the morning, and then go from there. We will get PT also to start working with her. Her sodium has normalized so I will discontinue the D5. cc: Mando Tse MD
[2019-09-02] MEDS: LOVENOX SUBQ SCH (14:00)
[2019-09-02] MEDS: PROTONIX IV SCH (14:51)
--- NOTE | 2019-09-02 17:17 | Extremity Venous Study ---
PROCEDURE NAME: Venous U/S Left Arm - 09/02/2019 [facility] EDUCATION COORDINATOR: Guerda. REQUESTING PHYSICIAN: Dr. Tse. INDICATION: Swelling. FINDINGS: The left upper extremity veins and left neck veins were visualized. There is occlusive thrombus with lack of compressibility in the basilic vein from the takeoff on the forearm. There is also occlusive thrombus in the left brachial artery in the distal aspect of the upper arm. IMPRESSION: There is superficial and deep thrombus noted in the left upper extremity. cc: MD Mando Yu MD
--- NOTE | 2019-09-02 20:52 | PULMONOLOGY PROGRESS NOTE ---
DATE: 09/02/2019 SUBJECTIVE: The patient was seen twice today, earlier in the morning and then in the evening. She had some audible rhonchi after emesis with eating and was made n.p.o. She does not have increased work of breathing but will need continued observation. OBJECTIVE: Vital Signs: Blood pressure 125/85, heart rate 94, respiratory rate 23, oxygen saturation 94%. HEENT: pupils are equal and reactive. Oropharynx is clear. Neck: Supple. Chest: Reveals crackles in the morning and bilateral rhonchi in the evening. Cardiac Exam: S1, S2. Abdomen: Soft. Extremities: Reveal trace edema. IMAGING: Chest x-ray reveals removal of the NG tube and endotracheal tube with some partial clearing of the infiltrates. LABORATORY DATA: White blood count 13.1, hemoglobin 11.9, platelet count 539,000. IMPRESSION: A 24-year-old with 1. Acute hypoxemic respiratory failure number. 2. Acute hypercapnic respiratory failure. 3. Acute respiratory distress syndrome. 4. Status post Coronavirus Disease 2019 testing x2, which was negative. 5. Probable aspiration event this afternoon. PLAN: 1. Place patient back to n.p.o. status. 2. We will initiate Clinimix at least in the interim. The patient will need to be stronger and with reduced oxygen requirements prior to re-initiating a diet. Would like to check a modified barium swallow before her diet has been re-initiated. 3. Continue ICU monitoring. cc: Octavio Jesus MD
[2019-09-02] MEDS: CLINIMIX E 4.25%-5% SOLUTION 1,000 ML IV SCH (21:44)
[2019-09-03] MEDS: VANCOMYCIN 2 GM in NS 500 ML IV SCH ×2 (00:07→13:30)
[2019-09-03] MEDS: LOVENOX SUBQ SCH ×2 (00:07→13:31)
[2019-09-03] MEDS: ALBUTEROL NEB INH SCH ×6 (03:24→23:57)
[2019-09-03 04:43] LABS: ALLEN TEST YES; BE 6.1 mmoll (-3.0-3.0); BLOOD TYPE ARTERIAL; HCO3-(ACT) 29.6 mmoll (20.0-26.0); METHB 1.3 % (0.0-1.5); O2(CT) 24.2 mL/dL (15.0-23.0); O2HB 94.8 % (95.0-99.0); PCO2(98.6) 45 mmHg (35-45); PO2(98.6) 83 mmHg (60-100); SAMPLE BLOOD; SAO2 97.8 % (95.0-100.0); THB 18.2 g/dL (11.5-17.4); pH(98.6) 7.45 (7.35-7.45)
[2019-09-03 04:46] LABS: MODALITY COOL AEROSOL
[2019-09-03] MEDS: MERREM 1 GM in NS 50 ML IV SCH ×3 (05:58→20:30)
[2019-09-03 06:13] LABS: HEMATOCRIT 35.3 % (37.0-47.0); HEMOGLOBIN 11.4 g/dL (12.0-16.0); MCH 29.2 PG (27-31); MCHC 32.3 g/dL (33-37); MCV 90.3 FL (81-99); MPV 10.2 FL (7.4-10.4); RBC 3.91 XMIL (4.2-5.4); RDW 12.7 % (11.5-14.5); WBC 12.75 X1000 (4.8-10.8)
[2019-09-03 06:39] LABS: AGAP 11; ALB/GLOB RATIO 0.8; ALKALINE PHOSPHATASE 305 U/L (32-104); BUN 23 mg/dL (8-22); CALCIUM 8.9 mg/dL (8.8-10.2); CHLORIDE 95 mmol/L (98-107); COSMO 274; CREATININE 0.4 mg/dL (0.5-0.9); ESTIMATED GFR > 60; GLUCOSE 105 mg/dL (70-104); GOT 71 U/L (10-30); GPT 55 U/L (10-36); POTASSIUM 3.4 mmol/L (3.5-5.1); SODIUM 135 mmol/L (136-145); TCO2 29 mmol/L (25-35); TOTAL BILIRUBIN 0.45 mg/dL (0.20-1.00); TOTAL PROTEIN 6.6 g/dL (6.3-8.3)
--- NOTE | 2019-09-03 07:21 | Diag Imaging Result Doc PS360 ---
CHEST-PORTABLE - 09/03/2019 INDICATION: respiratory failure COMPARISON: 09/02/2019 FINDINGS: The central line has been removed. Stable low lung volumes. Stable extensive bilateral hazy infiltrates right greater than left. Stable cardiomegaly and pulmonary vascular congestion. No significant pleural effusion. IMPRESSION: Central line removed. Otherwise no change from prior. Electronically signed by Nahid Browning 09/03/2019 7:19 AM
[2019-09-03] MEDS: MUCOMYST 20% INH SCH ×2 (08:06→20:03)
[2019-09-03] MEDS: LASIX IV SCH (08:49)
[2019-09-03] MEDS: DULCOLAX PR SCH ×2 (08:50→20:37)
[2019-09-03] MEDS: LAMICTAL PO SCH (08:50)
[2019-09-03] MEDS: LUVOX NG SCH (08:50)
[2019-09-03] MEDS: VITAMIN B-1 NG SCH (08:50)
[2019-09-03] MEDS: CLINIMIX E 4.25%-5% SOLUTION 1,000 ML IV SCH (12:30)
--- NOTE | 2019-09-03 15:01 | PULMONOLOGY PROGRESS NOTE ---
DATE: 09/03/2019 SUBJECTIVE: The patient is awake and alert. She does answer questions. She is extremely weak. She has a marginal cough effort. OBJECTIVE: Vital Signs: Maximum temperature in the last 24 hours is 100.3 degrees. BP 148/84, heart rate 105, respiratory rate 33, oxygen saturation 93% on 40% FiO2. HEENT: Pupils are equal and reactive. Oropharynx appears clear. Neck: Supple. Chest: Reveals rhonchi bilaterally. She cannot cough and clear her secretions. Cardiac: Increased rate. Regular rhythm. Abdomen: Soft, with positive bowel sounds. Extremities: Without edema. LABORATORIES: Arterial blood gas reveals a pH 7.45, pCO2 of 45, PO2 of 83 on cool aerosol. Chest x-ray reveals bilateral infiltrates, right greater than left, with mild vascular congestion. Sodium 135, potassium 3.4, chloride 95, bicarbonate 29, BUN 23, creatinine 0.4. IMPRESSIONS: A 24-year-old with: 1. Acute hypoxemic respiratory failure. 2. Acute hypercapnic respiratory failure. 3. Resolving acute respiratory distress syndrome. 4. Ongoing risk for aspiration with possible aspiration last evening. PLAN: 1. Maintain n.p.o. status. Okay for ice chips to promote oral hygiene. 2. Continue Clinimix until her oxygen requirements decrease. 3. Consider transfer to the [facility] soon if she continues to improve. cc: Octavio Jesus MD
[2019-09-03] MEDS ORDERED: OFIRMEV 1000 MG/ISOTONIC SOLN 1,000 MG/100 ML BOTTLE IV PRN (16:13)
--- NOTE | 2019-09-03 16:28 | PROGRESS NOTE ---
DATE: 09/03/2019 SUBJECTIVE: Patient has no major complaints. She is awake, although very weak. She can move her fingers a little bit. OBJECTIVE: Vital Signs: Blood pressure 128/81, heart rate 105, respiratory rate 23, temperature was 99.3 degrees. Cardiovascular: Regular rate and rhythm. Pulmonary: Bilateral breath sounds. Clear to auscultation. GI: Soft, nontender, nondistended. Bowel sounds are positive. LABORATORY: White count 12, hemoglobin 11 and hematocrit 35, platelets were 660,000; pH 7.45, pCO2 45, PaO2 83, potassium 3.4, AST and ALT 71 and 55, alkaline phosphatase 305. PROBLEM LIST: 1. Acute respiratory failure due to pneumonia, at this point felt to be aspiration pneumonitis. She is off the ventilator, but still very weak and still having issues with swallowing. 2. Multifocal pneumonia suspicious for aspiration. She is on vancomycin and meropenem. We will continue to follow. Dr. Daniel reported to me that the patient stuck her finger down her throat to try to throw up, so there is aspiration risk there. Her Coronavirus Disease 2019 (COVID 19) testing has been negative. 3. Polysubstance abuse. She is on amphetamine, tricyclics. She was participating in a detoxification program before she got sick. 4. Left upper extremity deep vein thrombosis. She is on Lovenox. We are going to continue to follow. Need to transition her to p.o. once she is tolerating p.o. 5. Dysphagia. Her swallowing screen was unremarkable. Really unclear at this point what we are going to do from that standpoint, but will start off with plain films and then a swallowing study, and then I guess we will get a GI consult subsequently, if she is still not tolerant of p.o. I am a little concerned about the weakness, because she is weak diffusely. Per the nursing staff, she has sat up a bit. She does move her arms, but she just has this appearance of generalized weakness. cc: Adonis Story MD
--- NOTE | 2019-09-03 16:45 | Diag Imaging Result Doc PS360 ---
EXAM: KUB ABDOMEN HISTORY: swelling, n/v TECHNIQUE: Single view COMPARISON: None. FINDINGS: No bowel obstruction. No organomegaly. No abnormal abdominal calcifications. An intrauterine device overlies the sacrum. An additional foreign body overlies the L2 vertebra. This may be within the vertebra. IMPRESSION: No acute abnormality Electronically signed by Renan Daily 09/03/2019 4:43 PM
[2019-09-03] MEDS: SODIUM CHLORIDE 0.9% INJ SCH (16:53)
[2019-09-03] MEDS: PROTONIX IV SCH (16:53)
[2019-09-03] MEDS: THIAMINE 100 MG in NS 50 ML IV SCH (17:45)
[2019-09-03] MEDS: PHENERGAN IV PRN (20:31)
[2019-09-03] MEDS: SODIUM CHLORIDE 0.9% INJ PRN (20:31)
[2019-09-04] MEDS: VANCOMYCIN 2 GM in NS 500 ML IV SCH (00:14)
[2019-09-04] MEDS: LOVENOX SUBQ SCH ×2 (00:14→13:27)
[2019-09-04] MEDS: CLINIMIX E 4.25%-5% SOLUTION 1,000 ML IV SCH ×3 (00:14→17:36)
[2019-09-04] MEDS: ALBUTEROL NEB INH SCH ×6 (03:33→23:25)
[2019-09-04] MEDS: MERREM 1 GM in NS 50 ML IV SCH ×3 (04:39→20:35)
[2019-09-04 06:32] LABS: HEMATOCRIT 36.2 % (37.0-47.0); HEMOGLOBIN 11.9 g/dL (12.0-16.0); MCH 29.9 PG (27-31); MCHC 32.9 g/dL (33-37); RBC 3.98 XMIL (4.2-5.4); WBC 12.78 X1000 (4.8-10.8)
--- NOTE | 2019-09-04 07:04 | Diag Imaging Result Doc PS360 ---
EXAM: CHEST-PORTABLE 09/04/2019 HISTORY: respiratory failure TECHNIQUE: AP portable at 0543 COMMENT: The inspiration is suboptimal. There is some alveolar opacity in the lung bases and mild interstitial opacity elsewhere. Compared to 09/03/2019 there is slightly worsened opacification in the costophrenic angle region on the right obscuring the lateral hemidiaphragm. IMPRESSION: Slight worsening of right lower lobe pneumonia. Electronically signed by Daren Finch 09/04/2019 7:02 AM
[2019-09-04] MEDS: LASIX IV SCH (07:19)
[2019-09-04 07:31] LABS: AGAP 14; ALB/GLOB RATIO 0.9; ALBUMIN 3.1 g/dL (3.5-5.0); ALKALINE PHOSPHATASE 284 U/L (32-104); BUN 24 mg/dL (8-22); CALCIUM 9.3 mg/dL (8.8-10.2); CHLORIDE 98 mmol/L (98-107); COSMO 277; CREATININE 0.5 mg/dL (0.5-0.9); ESTIMATED GFR > 60; GLUCOSE 90 mg/dL (70-104); GOT 45 U/L (10-30); GPT 49 U/L (10-36); MAGNESIUM 2.2 mg/dL (1.5-2.7); PHOSPHORUS 3.2 mg/dL (2.7-4.5); POTASSIUM 4.3 mmol/L (3.5-5.1); SODIUM 137 mmol/L (136-145); TCO2 25 mmol/L (25-35); TOTAL BILIRUBIN 0.48 mg/dL (0.20-1.00); TOTAL PROTEIN 6.6 g/dL (6.3-8.3)
[2019-09-04] MEDS: MUCOMYST 20% INH SCH ×2 (07:47→19:30)
[2019-09-04] MEDS: DULCOLAX PR SCH (09:02)
--- NOTE | 2019-09-04 09:15 | Diag Imaging Result Doc PS360 ---
EXAM: US ABDOMEN-COMPLETE 09/04/2019 HISTORY: swelling TECHNIQUE: Abdominal ultrasound COMMENT: The spleen is normal in size. The visualized portions of the aorta and inferior vena cava are within normal limits. There is no evidence of biliary dilatation the common bile duct measuring 4 mm. There is antegrade flow in the portal vein. The kidneys are without evidence of hydronephrosis or mass. The pancreatic body is normal in appearance the remainder is obscured. The liver is grossly normal in appearance. There are no abnormal fluid collections. The gallbladder is not visible. IMPRESSION: No evidence of acute disease. Electronically signed by Daren Finch 09/04/2019 9:12 AM
--- NOTE | 2019-09-04 09:50 | Diag Imaging Result Doc PS360 ---
EXAM: GI SERIES WITH BA SWALLOW INDICATION: dysphagia TECHNIQUE: Oral barium contrast was administered and the bolus was followed under fluoroscopy. Spot images were obtained. COMPARISON: None. FINDINGS: Administration of barium, there was deep aspiration of the contrast with a significant amount of contrast flowing into the right mainstem bronchus and higher order branches. No cough reflex was elicited. At this point, the study was terminated due to safety concerns. Most esophagus was imaged, however. No discrete filling defect or stricture is identified in the visualized portion. Limited views of the gastric fundus are unremarkable. IMPRESSION: 1.Deep contrast aspiration with no elicitation of cough reflex. As such, the study was terminated before completion due to safety concerns. 2.Limited views of the esophagus and gastric fundus are grossly unremarkable. Electronically signed by Fletcher Marrero 09/04/2019 9:47 AM
[2019-09-04] MEDS: VANCOMYCIN 1,250 MG in NS 250 ML IV SCH ×2 (10:45→17:41)
--- NOTE | 2019-09-04 14:31 | Diag Imaging Result Doc PS360 ---
EXAM: CT NECK W/CONTRAST INDICATION: aspiration/airway obstruction TECHNIQUE: This exam was performed using automated exposure control, adjustment of mA or kV according to patient size, and/or use of iterative reconstruction technique. COMPARISON: None. FINDINGS: The salivary glands and thyroid are unremarkable. There are several small shotty cervical lymph nodes bilaterally that are not necessarily pathologic. No soft tissue fluid collection is identified to indicate abscess. No masses are appreciated in the neck soft tissues. The aerodigestive tract including the larynx is unremarkable. Incidentally, there is sphenoid sinus mucosal disease. Limited views of the lung apices reveals an infiltrate at the right lung apex and trace infiltrate at the left lung apex. IMPRESSION: 1.Essentially unremarkable neck soft tissues. 2.Patchy consolidation at the right lung apex and minimal consolidation at the left lung apex. Electronically signed by Fletcher Marrero 09/04/2019 2:28 PM
--- NOTE | 2019-09-04 14:37 | PROGRESS NOTE ---
DATE: 09/04/2019 SUBJECTIVE: Patient has no major complaints. OBJECTIVE: Blood pressure is 139/70, heart rate of 86, respiratory rate of 30, temperature was 99.2 degrees. Cardiovascular: Regular rate and rhythm. Pulmonary: Bilateral breath sounds clear to auscultation. GI was soft, nontender, nondistended. Bowel sounds are positive. LABORATORY DATA: White count is 12, hemoglobin and hematocrit 11 and 36, platelets 728,000. Basic was normal. AST and ALT of 45 and 49 respectively. IMAGING: Chest x-ray shows worsening right lower lobe pneumonia. Upper GI series shows deep contrast aspiration with no cough reflex although she is coughing, so they stopped it, so she basically had a modified barium but some of it went directly into her lung unfortunately. Abdominal ultrasound did not show anything with her liver. CURRENT PROBLEM LIST: 1. Acute hypoxic respiratory failure due to aspiration. She is clearly aspirating, she did today. Previously I am not sure what it may have been attributed to. Apparently, she was self stimulating or inducing vomiting. Pulmonary is following. She is off the ventilator. 2. Aspiration-type pneumonia. She is on vancomycin and Merrem. The days of treatment, vancomycin has been reordered on the 8th, but it was started initially, and the Merrem on the 2nd, so day 6. 3. Polysubstance abuse. She was in a detox program. We will continue to follow. 4. Left upper extremity deep venous thrombosis. She is on Lovenox. We will continue to follow. 5. Dysphagia. We will continue to follow closely. Disposition pending her clinical status. 6. Dysphagia which really do not have a clue and I am not sure what is causing that. Differential may be anoxic injury, stroke which is unlikely. I went ahead and ordered a head and neck CT just to evaluate for any anatomical pathology, although her swallowing was okay. Head CT and then a Neurology consult just to evaluate for neuropathy or myopathy that may be inducing this. She cannot swallow, so we are going to have to find hyperalimentation issues in which case we are most likely going to have to put in a feeding tube and see how she does with that. We will continue to monitor closely. cc: Adonis Story MD
--- NOTE | 2019-09-04 14:59 | Diag Imaging Result Doc PS360 ---
CT HEAD W/O CONTRAST - 09/04/2019 INDICATION: hypoxia, r/o anoxic injury COMPARISON: 11/01/2011 FINDINGS: The ventricles and sulci are normal in size and contour. No intracranial mass or hemorrhage. The skull is intact. The sinuses mastoids and middle ears are clear. IMPRESSION: Negative exam. This exam was performed using automated exposure control, adjustment of mA or kV according to patient size, and/or use of iterative reconstruction technique Electronically signed by Nahid Browning 09/04/2019 2:56 PM
--- NOTE | 2019-09-04 15:59 | NEUROLOGY CONSULTATION ---
DATE: 09/04/2019 Ms. Tomas is 24 years old and she was admitted 15 days ago with reported nausea and vomiting, opiate withdrawal symptoms. There was development of pneumonia and that has been managed. She continues to have prominent dysphagia and tendency to aspiration. This prompted request for Neurology consultation. Ms. Tomas is awake, alert, and attentive. She reports she is aware of trouble swallowing. She reports no significant discomfort with attempted swallowing. She believes that she had some blurred vision and possibly double vision transiently, but that has resolved. She cannot report now with certainty that the double vision was horizontal or vertical or only blurred without jillian diplopia. She has felt weak all over and limb strength has been much improved today. There was never a definite focal neurologic feature. She reports no prior problems with swallowing difficulty, speech difficulty, other neuromuscular trouble. She has history of neck injury but no definite anterior neck and throat problems. She reports no weight loss prior to admission. She has not had diagnosed thyroid disease. She does not know of any family history of neuromuscular problem. Workup here includes noncontrast CT of the head and neck done today and both are unremarkable. Lab has shown mildly elevated BUN, occasional mildly elevated blood sugar, chronically mildly elevated liver enzymes. CK was 76. We do not have sedimentation rate this admission. She has had mild decreased calcium and potassium, but those are normal now. Urine drug screen was positive for amphetamines, tricyclics, cannabis and negative for opiates consistent with her reported opiate withdrawal syndrome. On exam, Ms. Tomas is awake, alert, attentive. She answered questions appropriately. Her voice is weak and difficult to understand. Dysarthria is moderate. She has full visual chinchilla tested monocularly and binocularly by confrontational finger counting. Extraocular movements are full. She does not report diplopia now. Facial motility is symmetric. Facial sensation is intact to pinprick and light touch testing. Tongue is midline and shows good power. Palate elevates weakly but is in midline. Gag is a little bit diminished. Shoulder shrug is equal. Strength in the limbs is generally symmetric grading 4/5 at the deltoids, 5/5 in the project construction assistant manager, 3/5 in the iliopsoas and 4+/5 in the anterior tibialis, 5/5 in the gastrocnemius. There is evidence of old right ankle injury. She reports good pinprick appreciation proximally around the shoulders and slightly diminished pinprick appreciation over the hands and more prominent diminished pinprick appreciation with some inconsistent responses over the feet. Proprioception is good at the second finger PIP joint bilaterally and reduced at the great toe MTP joint bilaterally. Reflexes are 2+ at the left ankle, trace at the right ankle, 2+ at the knees, 2+ at the ankles symmetrically. Plantar response is silent bilaterally. I did not ask her to stand or walk. Head and neck are unremarkable. There is no meningismus. IMPRESSION: Prominent dysphagia, moderate dysarthria, moderate predominantly proximal muscle weakness with remarkably spared reflexes and equivocal fairly minimal sensory deficit. In light of her report that she had no problems prior to admission, I am concerned about the possibility of critical illness polyneuropathy, myopathy, neuromuscular transmission defect or combination. There may be some contribution from her metabolic problems, but those are mostly corrected and seem unlikely to be playing a major role now. Negative imaging of the neck and head is reassuring. If she continues to have prominent reflexes with persistent weakness, we might consider MRI of the cervical spine and brain. First step will be nerve conduction study with repetitive nerve stimulation and EMG. Further plans will depend on that report and on her clinical course. Regardless of workup results, I am optimistic that she will continue to improve. Thanks for asking Neurology to see Ms. Tomas. cc: MD BERHANE Gaytan III
[2019-09-04] MEDS: PROTONIX IV SCH (16:50)
[2019-09-04] MEDS: SODIUM CHLORIDE 0.9% INJ SCH (16:50)
[2019-09-04] MEDS: THIAMINE 100 MG in NS 50 ML IV SCH (17:36)
--- NOTE | 2019-09-04 20:48 | PULMONOLOGY PROGRESS NOTE ---
DATE: 09/04/2019 SUBJECTIVE: The patient is awake. She is slow to answer questions. She appears to be in no distress. OBJECTIVE: Vital signs: The patient has been afebrile for the last 24 hours. Blood pressure 151/97, heart rate 85, respiratory rate 14, oxygen saturation 91% on 60% FiO2. HEENT: Pupils are equal and reactive. Oropharynx appears clear. Neck: Supple. Chest: Reveals rhonchi bilaterally. Cardiac Exam: S1, S2. Abdomen: Soft. Extremities: Without edema. DIAGNOSTIC DATA: Barium swallow was performed earlier today, which revealed a deep aspiration event with contrast flowing into the right mainstem. No gross esophageal abnormality was identified. IMAGING: Chest x-ray reveals worsening right lower lobe pneumonia. IMPRESSION: A 24-year-old with: 1. Acute hypoxemic respiratory failure. 2. Acute hypercapnic respiratory failure. 3. Recurrent aspiration with aspiration of barium. 4. Protein calorie malnutrition. PLAN: 1. Continue n.p.o. status. 2. Continue Clinimix with anticipation of either a short-term PEG placement or replacement of a feeding tube for adequate nutrition. 3. Continue physical therapy. cc: Octavio Jesus MD
[2019-09-05] MEDS: VANCOMYCIN 1,250 MG in NS 250 ML IV SCH ×3 (01:35→17:44)
[2019-09-05] MEDS: LOVENOX SUBQ SCH ×2 (01:35→13:10)
[2019-09-05] MEDS: ALBUTEROL NEB INH SCH ×6 (03:20→23:20)
[2019-09-05] MEDS: MERREM 1 GM in NS 50 ML IV SCH ×3 (04:40→21:04)
[2019-09-05 04:58] LABS: ALLEN TEST YES; BE 4.2 mmoll (-3.0-3.0); BLOOD TYPE ARTERIAL; HCO3-(ACT) 28.2 mmoll (20.0-26.0); METHB 1.1 % (0.0-1.5); O2(CT) 17.8 mL/dL (15.0-23.0); O2HB 96.9 % (95.0-99.0); PCO2(98.6) 40 mmHg (35-45); PO2(98.6) 135 mmHg (60-100); SAMPLE BLOOD; SAO2 99.4 % (95.0-100.0); THB 12.9 g/dL (11.5-17.4); pH(98.6) 7.46 (7.35-7.45)
[2019-09-05 04:59] LABS: MODALITY COOL AEROSOL
[2019-09-05 05:23] LABS: HEMATOCRIT 35.7 % (37.0-47.0); HEMOGLOBIN 11.6 g/dL (12.0-16.0); MCH 29.7 PG (27-31); MCHC 32.5 g/dL (33-37); MCV 91.3 FL (81-99); MPV 9.9 FL (7.4-10.4); RBC 3.91 XMIL (4.2-5.4); RDW 12.9 % (11.5-14.5); WBC 11.94 X1000 (4.8-10.8)
[2019-09-05 05:35] LABS: AGAP 13; ALBUMIN 3.3 g/dL (3.5-5.0); ALKALINE PHOSPHATASE 256 U/L (32-104); BUN 22 mg/dL (8-22); CALCIUM 9.3 mg/dL (8.8-10.2); CHLORIDE 102 mmol/L (98-107); COSMO 285; CREATININE 0.5 mg/dL (0.5-0.9); ESTIMATED GFR > 60; GLUCOSE 106 mg/dL (70-104); GOT 47 U/L (10-30); GPT 51 U/L (10-36); POTASSIUM 3.9 mmol/L (3.5-5.1); SODIUM 141 mmol/L (136-145); TCO2 26 mmol/L (25-35); TOTAL BILIRUBIN 0.54 mg/dL (0.20-1.00); TOTAL PROTEIN 6.5 g/dL (6.3-8.3)
--- NOTE | 2019-09-05 07:28 | Diag Imaging Result Doc PS360 ---
EXAM: CHEST-PORTABLE 09/05/2019 HISTORY: respiratory failure TECHNIQUE: AP portable at 0518 COMMENT: Compared to 09/04/2019 there is worsened opacification of the right base. The hemidiaphragm is now completely obscured. There is some generalized interstitial opacity and the heart size is enlarged. IMPRESSION: Worsened pulmonary edema versus pneumonia right lower lobe. Electronically signed by Daren Finch 09/05/2019 7:26 AM
[2019-09-05] MEDS: LASIX IV SCH (08:09)
[2019-09-05] MEDS: CLINIMIX E 4.25%-5% SOLUTION 1,000 ML IV SCH (08:10)
[2019-09-05] MEDS: MUCOMYST 20% INH SCH ×2 (08:10→19:20)
--- NOTE | 2019-09-05 11:00 | NEUROLOGY PROGRESS NOTE ---
DATE: 09/05/2019 Ms. Tomas reports feeling stronger today. She reports vision has remained consistently improved in the last few days without recurrent diplopia. I reviewed the history she had provided yesterday at length and in some detail today. She confirms that, before this illness, before a few weeks ago, she had not had muscle weakness, difficulty using her limbs, unsteady gait, falling, diplopia, other vision disturbance, slurred speech, trouble swallowing, weight loss, unexplained skin rash. She reports occasional urinary incontinence, but that was not a major problem. She does not know of any family history of neuromuscular problem. OBJECTIVE: On exam today, she is awake, alert, a little bit brighter and more consistent with attention than yesterday. Speech is more consistently understandable and is less dysarthric than yesterday. Palate movement is little bit improved. Tongue continues midline. There was very inconsistent and questionable fasciculation, but nothing consistent in the tongue. Upper and lower facial motility is strong bilaterally. Extraocular movements are full. Forehead wrinkling is good bilaterally. She has moderate limb weakness throughout, about the same as yesterday. Plantar response is silent bilaterally. Reflexes continue brisk throughout, except at the previously injured right ankle. She reports diminished primary sensation over the legs more than the arms on brief testing today. Proprioception continues poor at the great toe MTP joint, but responses may be a little bit improved and more consistent than yesterday. Neck is supple. EMG yesterday showed widespread denervation but no giant motor unit potentials, no fasciculation, preserved F-waves, no significant slowing on nerve conduction, except as could be attributed to the prior right lower leg injury. Repetitive nerve stimulation was unremarkable and showed no evidence of myasthenia gravis or of other neuromuscular transmission defect. I have reviewed her lab. CK was normal earlier this admission. She has had some minor metabolic problems, but nothing sufficient to explain the neuromuscular findings. I have ordered lab including B 12, sedimentation rate, CRP, HIV, serum protein electrophoresis, thyroid and repeat CK. IMPRESSION: Generalized weakness with remarkably spared or increased reflexes, relatively minimal sensory change, electromyography evidence of widespread denervation, prominent dysphagia. 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 The clinical exam and electromyography findings are consistent with motor neuron disease, but her clinical course and history are not typical of amyotrophic lateral sclerosis. Computed tomography of the neck showed nothing definitely remarkable. We will need to consider brain magnetic resonance imaging, cervical magnetic resonance imaging when practical, not urgent. Depending on results of lab today and her clinical course, we might need to check for other inflammatory problems including sarcoid, Lyme disease, paraneoplastic problems. Eventually, if she does not recover, she may need referral to a neuromuscular clinic for consideration of muscle biopsy. Time will tell. Thanks for asking Neurology to see Ms. Tomas. cc: MD BERHANE Gaytan III
--- NOTE | 2019-09-05 12:10 | PROGRESS NOTE ---
DATE: 09/05/2019 SUBJECTIVE: Ms. Tomas is 24-year-old admitted on 08/20/2019, came in with nausea. She has no primary care physician. A 24-year-old presented to [facility] secondary nausea, vomiting, abdominal pain, myalgia. She is using opiates. She had been trying to stop withdrawal symptoms but they became too severe. She lives in [place] and lives at home, so she is in the intensive care. OBJECTIVE: She was awake, kind of seemed to be slow to answer questions, still a little bit in a daze. Moving all extremities. Remains afebrile, temperature 98.1 degrees, pulse 84, respirations 22, blood pressure 155/89. Pupils are equal and round. Lungs are clear in all lung chinchilla. Cardiovascular: Regular rhythm and rate without murmur or S3. Abdomen is soft. Skin is warm and dry. Urine output is 4100 mL. ASSESSMENT AND PLAN: 1. Acute hypoxemic respiratory failure due to aspiration, clearly aspirating. Previously not sure what the pneumonia was attributed to. Apparently she was self stimulating and inducing vomiting. She is off the ventilator. Air and gas exchange seem to have improved. 2. Aspiration type pneumonia on vancomycin and Merrem. The days of treatment, vancomycin and been reordered on the 8th but was started initially, and the Merrem day 7. 3. Polysubstance abuse. She is on detox program. 4. Left upper extremity deep venous thrombosis. She was on Lovenox. Continue. 5. Dysphagia. Continue to follow this. I think this hopefully will improve as she gets further off of her opiates. In regards to dysphagia, not sure what is causing it. Could be the anoxic injury or stroke which is unlikely. We got a head and neck CT and looking for possibility of neuropathy or myopathy. Appreciate Dr. Ng's help. She has prominent dysphagia, moderate dysarthria, moderate predominantly proximal muscle weakness and remarkably spared reflexes and minimal sensory deficit. Apparently reported she had no problems prior to admission, so concern is possible cortical illness, polyneuropathy, myopathy, neuromuscular transmission defect combination, and there may be some contribution from her metabolic problems, so imaging the neck and the head. Might consider an MRI. Neck CT done yesterday essentially unremarkable neck soft tissue, patchy consolidation in the right lung apex, minimal consolidation in the left lung apex, and her CT of the head was negative. REVIEW OF HER ORDERS: She is getting Clinimix 75 mL an hour. Getting Lovenox 100 mg subcutaneously q.12, Lasix 40 mg q.24 hours, meropenem 1 g IV q.8 hours, Protonix 40 mg IV q.24 hours, and vancomycin her for per pharmacy. She getting thiamine 100 mg IV q.24 hours, and her vancomycin is at 1250 mg IV q.8. cc: Jairo Gunter MD
[2019-09-05] MEDS: SODIUM CHLORIDE 0.9% INJ SCH (15:59)
[2019-09-05] MEDS: PROTONIX IV SCH (15:59)
[2019-09-05 16:03] LABS: FREE T4 1.23 ng/dL (0.93-1.70); TSH 2.71 uIUmL (0.27-4.20)
[2019-09-05] MEDS: THIAMINE 100 MG in NS 50 ML IV SCH (17:01)
[2019-09-05] MEDS ORDERED: LASIX IV ONE (18:00)
[2019-09-05] MEDS: SODIUM CHLORIDE 0.9% INJ PRN (19:45)
[2019-09-05] MEDS: PHENERGAN IV PRN (19:45)
--- NOTE | 2019-09-05 22:19 | PULMONOLOGY PROGRESS NOTE ---
DATE: 09/05/2019 SUBJECTIVE: The patient is awake, alert, and conversant. Her voice is soft. She does follow commands. She was able to ambulate a few steps with physical therapy. Her oxygen requirements are decreasing. OBJECTIVE: Vital Signs: The patient has been afebrile for the last 24 hours. Blood pressure 136/77, heart rate 84, respiratory rate 17, oxygen saturation 93%. HEENT: Pupils are equal. Oropharynx appears clear. Neck: Supple. Chest: Reveals rhonchi bilaterally which partially clear with cough. Cardiac: S1-S2. Abdomen: Soft. Extremities: Reveal 1+ peripheral edema. LABORATORIES: Chest x-ray reveals increased density at the right base. White blood count 11.94, hemoglobin 11.6, platelet count 700,000. Sodium 141, potassium 3.9, chloride 102, bicarbonate 26, BUN 22, creatinine 0.5. C-reactive protein has decreased to 13.67. IMPRESSION: A 24-year-old with: 1. Acute hypoxemic respiratory failure. 2. Acute hypercapnic respiratory failure. 3. Aspiration pneumonia with recent aspiration during barium swallow. 4. Protein calorie malnutrition. PLAN: 1. Continue Clinimix for now. 2. Consider replacement of feeding tube. 3. Continue physical therapy. 4. Okay for ice chips. cc: Octavio Jesus MD
[2019-09-06] MEDS: ALBUTEROL NEB INH SCH ×6 (03:20→23:30)
[2019-09-06] MEDS: LOVENOX SUBQ SCH ×2 (03:24→13:22)
[2019-09-06] MEDS: VANCOMYCIN 1,250 MG in NS 250 ML IV SCH ×2 (03:24→10:23)
[2019-09-06] MEDS: CLINIMIX E 4.25%-5% SOLUTION 1,000 ML IV SCH ×2 (04:06→17:30)
[2019-09-06 05:11] LABS: ALLEN TEST YES; BE 3.5 mmoll (-3.0-3.0); BLOOD TYPE ARTERIAL; HCO3-(ACT) 27.5 mmoll (20.0-26.0); METHB 0.9 % (0.0-1.5); MODALITY ROOM AIR; O2HB 92.8 % (95.0-99.0); PCO2(98.6) 35 mmHg (35-45); PO2(98.6) 65 mmHg (60-100); SAMPLE BLOOD; SAO2 96.5 % (95.0-100.0); THB 13.8 g/dL (11.5-17.4); pH(98.6) 7.49 (7.35-7.45)
[2019-09-06 05:29] LABS: HEMATOCRIT 38.3 % (37.0-47.0); HEMOGLOBIN 12.9 g/dL (12.0-16.0); MCH 30.4 PG (27-31); MCHC 33.7 g/dL (33-37); MCV 90.3 FL (81-99); MPV 9.9 FL (7.4-10.4); RBC 4.24 XMIL (4.2-5.4); RDW 13.3 % (11.5-14.5); WBC 11.23 X1000 (4.8-10.8)
[2019-09-06] MEDS: MERREM 1 GM in NS 50 ML IV SCH ×3 (05:57→20:05)
[2019-09-06 06:00] LABS: AGAP 17; ALB/GLOB RATIO 0.9; ALBUMIN 3.7 g/dL (3.5-5.0); ALKALINE PHOSPHATASE 273 U/L (32-104); BUN 25 mg/dL (8-22); CALCIUM 9.6 mg/dL (8.8-10.2); CHLORIDE 99 mmol/L (98-107); COSMO 284; CREATININE 0.5 mg/dL (0.5-0.9); ESTIMATED GFR > 60; GLUCOSE 98 mg/dL (70-104); GOT 52 U/L (10-30); GPT 69 U/L (10-36); POTASSIUM 3.7 mmol/L (3.5-5.1); SODIUM 140 mmol/L (136-145); TCO2 24 mmol/L (25-35); TOTAL BILIRUBIN 0.66 mg/dL (0.20-1.00); TOTAL PROTEIN 7.8 g/dL (6.3-8.3)
--- NOTE | 2019-09-06 07:08 | Diag Imaging Result Doc PS360 ---
EXAM: CHEST-PORTABLE INDICATION: respiratory failure TECHNIQUE: One view COMPARISON: 09/05/2019 FINDINGS: There has been improvement of the infiltrate at the right lung base since the previous study no new consolidation is identified. Cardiac silhouette is stable. IMPRESSION: Interval improvement of right basilar consolidation. Electronically signed by Fletcher Marrero 09/06/2019 7:06 AM
[2019-09-06] MEDS: MUCOMYST 20% INH SCH ×2 (08:43→19:50)
[2019-09-06] MEDS: LASIX IV SCH (09:00)
[2019-09-06] MEDS ORDERED: KLONOPIN PO PRN (09:56)
[2019-09-06 09:59] LABS: HIV ANTIBODY SCREEN SEE COMMENTS
[2019-09-06] MEDS: PHENERGAN IV PRN (10:10)
[2019-09-06] MEDS: BUSPAR PO SCH ×2 (10:23→20:05)
--- NOTE | 2019-09-06 10:43 | PROGRESS NOTE ---
DATE: 09/06/2019 SUBJECTIVE: Ms. Tomas is awake and seems more alert, a little stronger. I am going to start her back on her BuSpar at a lower dose, instead of 30 mg twice a day, 15 mg twice a day, and put her back on her Klonopin. I am going to hold her Neurontin. She feels like she is swallowing better but we will do a modified barium swallow on her. OBJECTIVE: Vitals: Temperature 99.0 degrees, pulse 75, respirations 25, blood pressure 139/87. HEENT: Pupils are equal and round. Lungs: The lungs are clear in all lung chinchilla. Cardiovascular: Regular rhythm and rate without murmur or S3. Abdomen: Soft. Skin: Warm and dry. DIAGNOSTIC DATA: Urine output is over 7 L. Chest x-ray, interval improvement in the right basilar consolidation. ASSESSMENT: 1. Acute hypoxemic respiratory failure. 2. Acute hypercapnic respiratory failure. 3. Aspiration pneumonia, recent aspiration during barium swallow. 4. Protein calorie malnutrition. PLAN: I suspect that she was having some effects from multiple medications, and I suspect serotonin syndrome is likely. I am going to hold the Neurontin. I think she is going through withdrawal from her Klonopin and so I will put her back on her Klonopin 0.5 mg t.i.d. and put her back on a lower dose of BuSpar, continue to treat the pneumonia. We will get a modified barium swallow. I think clinically she is improving. Blood cultures from the 25th have been negative. Her influenza screen was negative for influenza A and B, and no growth from her sputum. cc: Jairo Gunter MD
--- NOTE | 2019-09-06 11:15 | NEUROLOGY PROGRESS NOTE ---
DATE: 09/06/2019 SUBJECTIVE: Ms. Tomas is sitting up and reports she feels stronger. She believes her voice is stronger and that her swallowing is improved. She has a modified barium swallow planned for later today. Lab has been unremarkable to this point. Repeat CK continued normal at 61. CRP is down to 13.67. Liver enzymes continue moderately elevated without major changes. TSH and free T4 were normal. B12 was 687. HIV antibody was negative. Protein electrophoresis is pending. Sedimentation rate was 82, of uncertain significance in light of her medical illness. OBJECTIVE: On exam, she has good facial motility. Forehead wrinkling is good bilaterally. She raises eyebrows symmetrically. Extraocular movements are good, full lateral and vertical eye movements. She reports no diplopia now. Tongue is midline. Palate elevates better today and continues midline. She has some trouble with lingual and guttural sounds more than labial sounds, but speech is less dysarthric today. IMPRESSION AND PLAN: Generalized weakness, clinical improvement noted on examination, workup in progress, but no definite diagnosis at this point. 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 Her youth and normal neuromuscular status prior to illness are good prognostic factors. I do not have any urgent suggestion from Neurology standpoint right now. I discussed neuromuscular situation at length with mother over the phone yesterday and reviewed that with patient today. Thank you for asking us to see Ms. Tomas. cc: MD BERHANE Gaytan III
[2019-09-06] MEDS: KLONOPIN PO SCH ×2 (12:44→16:42)
--- NOTE | 2019-09-06 13:42 | Diag Imaging Result Doc PS360 ---
EXAM: BA SWALLOW W/VIDEO SPEECH THER 09/06/2019 HISTORY: aspiration TECHNIQUE: 209 images, 212 mGy, 24 seconds fluoroscopy time. COMMENT: There is a small trickle of barium in the larynx and upper trachea on the first swallow. More barium is seen on the third swallow in the upper trachea and the patient did exhibit a cough reflex. There is a small sliding hiatal hernia. There is no evidence of cricopharyngeal achalasia. IMPRESSION: Trace aspiration. Electronically signed by Daren Finch 09/06/2019 1:40 PM
--- NOTE | 2019-09-06 15:40 | PULMONOLOGY PROGRESS NOTE ---
DATE: 09/06/2019 SUBJECTIVE: The patient is awake and alert. Her voice is slightly stronger, but still soft. OBJECTIVE: vital signs: Blood pressure 124/90, heart rate 96, respiratory rate 20, oxygen saturation 96%. HEENT: Pupils are equal and reactive. Oropharynx appears clear. neck: Neck is supple. pulmonary: Chest reveals occasional rhonchi bilaterally. Cardiac: S1, S2. abdomen: Abdomen is obese and soft. Extremities: Without edema. LABORATORIES AND STUDIES: Chest x-ray reveals decreased infiltrate with near clearing of the right base lung base. IMPRESSION: A 24-year-old with: 1. Acute hypoxemic respiratory failure. 2. Acute hypercapnic respiratory failure. 3. Aspiration pneumonia with recent barium swallow. Repeat barium swallow ordered. 4. Protein calorie malnutrition. RECOMMENDATION: 1. Continue Clinimix for now. 2. Await results of repeat barium swallow. I would be reluctant to advance diet if she continues to aspirate. 3. Continue physical therapy. 4. Continue ice chips. cc: Octavio Jesus MD
[2019-09-06] MEDS: PROTONIX IV SCH (15:43)
[2019-09-06] MEDS: THIAMINE 100 MG in NS 50 ML IV SCH (16:32)
[2019-09-07] MEDS: VANCOMYCIN 1,250 MG in NS 250 ML IV SCH ×3 (01:25→18:41)
[2019-09-07] MEDS: ALBUTEROL NEB INH SCH ×2 (03:44→08:13)
[2019-09-07] MEDS: MERREM 1 GM in NS 50 ML IV SCH ×3 (05:32→21:50)
[2019-09-07 06:05] LABS: HEMATOCRIT 42.9 % (37.0-47.0); HEMOGLOBIN 14.5 g/dL (12.0-16.0); MCH 30.7 PG (27-31); MCHC 33.8 g/dL (33-37); MCV 90.9 FL (81-99); MPV 9.8 FL (7.4-10.4); RBC 4.72 XMIL (4.2-5.4); RDW 13.4 % (11.5-14.5); WBC 11.37 X1000 (4.8-10.8)
[2019-09-07] MEDS: CLINIMIX E 4.25%-5% SOLUTION 1,000 ML IV SCH ×2 (06:08→20:46)
[2019-09-07] MEDS: PHENERGAN IV PRN ×2 (06:14→15:14)
--- NOTE | 2019-09-07 06:42 | Diag Imaging Result Doc PS360 ---
EXAM: CHEST-PORTABLE 09/07/2019 HISTORY: respiratory failure TECHNIQUE: AP portable at 0553 COMMENT: The lungs are slightly better expanded and clearer than on 09/06/2019 although there continues to be some opacity over the right costophrenic angle region. IMPRESSION: Essentially stable chest. Electronically signed by Daren Finch 09/07/2019 6:39 AM
[2019-09-07] MEDS: KLONOPIN PO SCH ×3 (08:03→17:13)
[2019-09-07] MEDS: LASIX IV SCH (08:03)
[2019-09-07] MEDS: BUSPAR PO SCH ×2 (08:03→21:17)
[2019-09-07] MEDS: MUCOMYST 20% INH SCH (08:13)
[2019-09-07 09:14] LABS: AGAP 16; ALB/GLOB RATIO 1.1; ALKALINE PHOSPHATASE 285 U/L (32-104); BUN 24 mg/dL (8-22); CALCIUM 9.5 mg/dL (8.8-10.2); CHLORIDE 99 mmol/L (98-107); COSMO 283; CREATININE 0.6 mg/dL (0.5-0.9); ESTIMATED GFR > 60; GLUCOSE 98 mg/dL (70-104); GOT 76 U/L (10-30); GPT 106 U/L (10-36); POTASSIUM 3.9 mmol/L (3.5-5.1); SODIUM 140 mmol/L (136-145); TCO2 25 mmol/L (25-35); TOTAL BILIRUBIN 0.78 mg/dL (0.20-1.00); TOTAL PROTEIN 7.5 g/dL (6.3-8.3)
--- NOTE | 2019-09-07 11:05 | PROGRESS NOTE ---
DATE: 09/07/2019 SUBJECTIVE: Ms. Valle is much more awake. She says she is swallowing better. Her breathing is comfortable. OBJECTIVE: Vital signs: Temperature 98.7 degrees, pulse 107, respirations 23, blood pressure 113/70. HEENT: Pupils are equal and round. Lungs are clear in all lung chinchilla anterior and posterior. Cardiovascular: Regular rhythm and rate without murmur or S3. Abdomen is soft. Skin is warm and dry. Urine output is 2800 mL. Her chest x-ray from today, essentially stable. Lungs are slightly better expanded and clearer than 09/06/2019. Continues to be some opacity over the right costovertebral angle. ASSESSMENT AND PLAN: Acute hypoxemic respiratory failure, acute hypercapnic respiratory failure, aspiration pneumonia. Recent barium swallow shows she is still having some trouble swallowing. Speech therapy ordered. Hopefully this will improve when she gets a little stronger and then protein calorie malnutrition hopefully she can improve. We are giving her I think pureed diet right now. We will get Physical Therapy involved. We can get her Jordan catheter out. REVIEW OF HER ORDERS: Looking at her orders she is on acetylcysteine 20% with 3 mL inhalation q.12 hours, DuoNeb 2.5 mg inhalation q.4 hours, BuSpar she is back on 15 mg p.o. b.i.d., Clinimix 75 mg an hour, Klonopin 0.5 mg p.o. t.i.d., she was on Klonopin at home. I suspect some of her symptoms could be from benzodiazepine withdrawal. She is on meropenem 1 g IV q.8, Protonix 40 mg IV q.24 hours, thiamine 100 mg q.24 hours and vancomycin 1250 mg IV q.8 hours. MICROBIOLOGY: Her sputum grew no growth. Influenza nasopharyngeal swab negative for A and B, and blood cultures negative from 08/21/2019. cc: Jairo Gunter MD
[2019-09-07] MEDS: LOVENOX SUBQ SCH ×2 (12:01)
--- NOTE | 2019-09-07 13:20 | PULMONOLOGY PROGRESS NOTE ---
DATE: 09/07/2019 SUBJECTIVE: The patient is awake and alert. Her voice continues to grow stronger. She is having periods of agitation and confusion, but was very calm during my evaluation. PHYSICAL EXAMINATION: Reveals a well-developed, well-nourished female resting comfortably and in no distress. Current temperature 98.7 degrees, blood pressure 112/89, heart rate 98, respiratory rate 15, oxygen saturation 98%. HEENT, pupils are equal and reactive. Oropharynx appears clear. Neck is supple. Chest reveals occasional crackles at the right base. Cardiac exam S1-S2. Abdomen is obese and soft. Extremities are without edema. DATA: Chest x-ray reveals tiny infiltrate at the right base but lung chinchilla are essentially clear. White blood count 11.37, hemoglobin 14.5 platelet count 752,000. Sodium 140, potassium 3.9, chloride 99, bicarbonate 25, BUN 24, creatinine 0.6. AST 76, ALT 106. IMPRESSION: A 24-year-old with: 1. Acute hypoxemic and acute hypercapnic respiratory failure. She is being weaned off oxygen. 2. Recurrent aspiration. 3. Periods of confusion/delirium. 4. Protein calorie malnutrition. PLAN: 1. Continue Clinimix. 2. Cautious diet advancement. 3. Continue physical therapy. 4. Discontinue nebulizer treatments which may be promoting/increasing her nausea. 5. Anticipate transfer to the floor. cc: Octavio Jesus MD
[2019-09-07] MEDS: PROTONIX IV SCH (15:13)
[2019-09-07] MEDS: THIAMINE 100 MG in NS 50 ML IV SCH (17:39)
[2019-09-08] MEDS: LOVENOX SUBQ SCH ×2 (01:54→14:21)
[2019-09-08] MEDS: VANCOMYCIN 1,250 MG in NS 250 ML IV SCH (02:25)
[2019-09-08] MEDS: MERREM 1 GM in NS 50 ML IV SCH ×3 (05:43→21:42)
[2019-09-08] MEDS: CLINIMIX E 4.25%-5% SOLUTION 1,000 ML IV SCH ×3 (05:44→21:42)
[2019-09-08] MEDS: SODIUM CHLORIDE 0.9% INJ PRN (06:14)
[2019-09-08] MEDS: PHENERGAN IV PRN (06:14)
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
[2019-09-08 07:13] LABS: AGAP 16; ALB/GLOB RATIO 0.9; ALBUMIN 3.9 g/dL (3.5-5.0); ALKALINE PHOSPHATASE 279 U/L (32-104); BUN 24 mg/dL (8-22); CALCIUM 9.8 mg/dL (8.8-10.2); CHLORIDE 99 mmol/L (98-107); COSMO 279; CREATININE 0.7 mg/dL (0.5-0.9); ESTIMATED GFR > 60; GLUCOSE 89 mg/dL (70-104); GOT 50 U/L (10-30); GPT 89 U/L (10-36); HEMATOCRIT 44.7 % (37.0-47.0); MCH 30.4 PG (27-31); MCHC 33.6 g/dL (33-37); MCV 90.5 FL (81-99); MPV 9.8 FL (7.4-10.4); POTASSIUM 4.4 mmol/L (3.5-5.1); RBC 4.94 XMIL (4.2-5.4); RDW 13.6 % (11.5-14.5); SODIUM 138 mmol/L (136-145); TCO2 23 mmol/L (25-35); TOTAL BILIRUBIN 0.76 mg/dL (0.20-1.00); TOTAL PROTEIN 8.3 g/dL (6.3-8.3); WBC 11.03 X1000 (4.8-10.8)
--- NOTE | 2019-09-08 08:18 | Diag Imaging Result Doc PS360 ---
EXAM: CHEST-PORTABLE 09/08/2019 HISTORY: respiratory failure TECHNIQUE: AP portable upright at 0742 COMMENT: There is atelectasis in the left costophrenic angle. The inspiration is suboptimal. There has been some clearing of atelectasis in the right costophrenic angle. Otherwise are has been no significant change since 09/07/2019. IMPRESSION: Improved right lower lobe atelectasis. Electronically signed by Daren Finch 09/08/2019 8:15 AM
[2019-09-08] MEDS: BUSPAR PO SCH ×2 (08:50→21:42)
[2019-09-08] MEDS: KLONOPIN PO SCH ×3 (08:50→16:43)
[2019-09-08] MEDS: LASIX IV SCH (08:50)
[2019-09-08] MEDS: NICODERM PATCH TD SCH (12:20)
--- NOTE | 2019-09-08 13:16 | PROGRESS NOTE ---
DATE: 09/08/2019 SUBJECTIVE: Ms. Tomas was up and seems much more alert. Her bowels are moving, and she is swallowing and eating well. She says she is ready to go home. OBJECTIVE: Vital Signs: Temp 97.9 degrees, pulse 99, respirations 19, blood pressure 121/72. HEENT: Pupils are equal and round. Lungs: Clear in all lung chinchilla. Cardiovascular: Regular rhythm and rate without murmur or S3. Abdomen: Soft. Skin: Warm and dry. Urine output was 2700. ASSESSMENT AND PLAN: 1. She came to the hospital and developed acute hypoxemic hypercapnic respiratory failure, and we suspect this from aspiration pneumonia. Her gas exchange and air exchange have improved. She is out of the unit and doing well. 2. Trouble with swallow. She had kind of a blunted affect, and I suspect this is still from coming off of some of her medications. I restarted her on her Klonopin. I thought she might be having some benzodiazepine withdrawal. She has improved, so hopefully can go home soon. 3. History of sliding hernia. 4. Protein calorie malnutrition, but she is starting to swallow and eat better. She is on Clinimix. 5. Elevated liver enzymes, which are improving. 6. Elevated body mass index of 35.2. 7. History of polysubstance abuse. 8. Tobacco use. 9. Opioid abuse. Was admitted initially for withdrawal symptoms and to go through withdrawal program. 10. Aspiration pneumonia. 11. History of bipolar disorder. 12. Deep venous thrombosis prophylaxis. She does have a left upper extremity deep venous thrombosis, and she is on Lovenox. 13. On initial presentation, urine toxicology screen was positive for amphetamines, tricyclics, and cannabinoids. 14. History of opioid use due to chronic pain syndrome. Continue physical therapy. We have her Jordan catheter out. REVIEW OF ORDERS: I do not see any change. I am giving her some thiamine, and I have cut down her dose of BuSpar, so she is back on her BuSpar, and she is on her Klonopin. Klonopin 0.5 mg t.i.d. and BuSpar 15 mg b.i.d. I have discussed her case with her mother, and will do so again today. cc: Jairo Gunter MD
[2019-09-08] MEDS ORDERED: VANCOMYCIN 1,250 MG in NS 250 ML IV SCH (14:00)
[2019-09-08] MEDS: VANCOMYCIN 1 GM/NS 1 GM/250 ML IVPB IV SCH ×2 (15:59→22:35)
[2019-09-08] MEDS: PROTONIX IV SCH (16:42)
[2019-09-08] MEDS: THIAMINE 100 MG in NS 50 ML IV SCH (16:43)
--- NOTE | 2019-09-08 17:25 | GASTROENTEROLOGY PROGRESS NOTE ---
DATE: 09/08/2019 ATTENDING PHYSICIAN: Dr. Gunter. SUBJECTIVE: The patient is currently resting in bed. She is feeling better. Her swallowing has improved. She is eating well. Denies any coughing spells while eating. She denies any nausea or vomiting. She denies any fevers, rigors, or chills. She was able to eat 50% of her meal this morning and her last bowel movement was yesterday. PHYSICAL EXAMINATION: Vital Signs: Temperature 98.4 degrees, pulse rate 114, respiratory rate 21, blood pressure 132/75, saturating 92% on room air. Body weight of 222 pounds 9 ounces. BMI 35 kg/m2. General Appearance: Moderately built, moderately nourished. Lying in bed, in no acute distress. HEENT: No pallor. No icterus. Pupils equal, reactive to light. Neck: Supple. Abdomen: Obese, soft, nontender, nondistended. No guarding. Extremities: No cyanosis or clubbing. Neurologic: She is alert, awake, and oriented x3. LABS: Hemoglobin and hematocrit are 15 and 44.7, white count of 11.3, platelet count of 799,000. Sodium 138, potassium 4.0, chloride 99, bicarb 29, anion gap 16, BUN of 24, creatinine 0.7, glucose of 89, calcium is 9.8. Total bilirubin is 0.76, AST 50, ALT 89, alkaline phosphatase 279, total protein is 8.3, albumin of 3.9. Serum protein electrophoresis, normal study. No monoclonal band identified. Her liver enzymes were elevated. We ordered a hepatitis panel, which is currently pending. IMPRESSION AND PLAN: 1. Acute hypoxic respiratory failure, suspected from aspiration pneumonia. This is improved completely. 2. Dysphagia, has improved. 3. Barium swallow showing evidence of small hiatal hernia. The patient was counseled to follow gastroesophageal reflux lifestyle changes. Avoid excessive tea, coffee, soda, tomatoes, onions, spicy foods, and chew her food well and try to lose weight. 4. Elevated liver enzymes. We will check a hepatitis panel, which is currently pending. Elevated body mass index of 35, consistent with obesity. Patient was counseled to lose weight. 5. History of polysubstance abuse. 6. Tobacco abuse. 7. Opiate abuse. The patient was initially admitted for withdrawal symptoms and to go through withdrawal program. 8. Aspiration pneumonia, improved. 9. History of bipolar disorder. 10. Deep vein thrombosis prophylaxis. The patient does have a left upper extremity deep venous thrombosis and she is on Lovenox per the primary care team. 11. History of opioid use secondary to chronic pain syndrome on admission. RECOMMENDATIONS: 1. The patient will continue on the current plan of care per the primary care team. The patient will be on Protonix once daily for 30 days and then can be switched to Pepcid 20 mg once daily or twice daily as needed for any kind of reflux symptoms. She will need to follow up in the clinic in 4 weeks of discharge to discuss the hepatitis panel and elevated liver enzymes. The patient was counseled to stay abstinent from polysubstance abuse. She is on antibiotics per primary care team. The patient also was encouraged to stay abstinent from tobacco smoking. 2. The above plan was discussed with the patient and all her questions were answered. Please call with any further questions. Thank you for allowing us to participate in the care of this patient. cc: MD Jairo Davila MD [facility]
[2019-09-09] MEDS: LOVENOX SUBQ SCH (01:30)
--- NOTE | 2019-09-09 02:40 | PULMONOLOGY PROGRESS NOTE ---
DATE: 09/08/2019 SUBJECTIVE: The patient is awake, alert, and conversant. She has had significant improvement in her voice. She reports she is taking liquids without difficulty. She does report some pain and tenderness at the IV in her right antecubital fossa. OBJECTIVE: Vital Signs: The patient has been afebrile for the last 24 hours with maximum temperature of 99.7 degrees, BP 110/77, heart rate 88, respiratory rate 19, oxygen saturation 98% on room air. HEENT: Pupils are equal and reactive. Oropharynx appears clear. Neck: Supple. Chest: Reveals good air entry bilaterally without wheezing or rhonchi. Cardiac: S1- S2. Abdomen: Soft. Extremities: Without edema. She does have tenderness at the right antecubital site with some mild erythema. LABORATORIES: Chest x-ray reveals minimal atelectasis at the left costophrenic angle with some clearing of the right costophrenic angle. White blood count 11.0, hemoglobin 15.5, platelet count 799,000. Sodium 138, potassium 4.4, chloride 99, bicarbonate 23, BUN 24, creatinine 0.7. IMPRESSION: A 24-year-old with: 1. Acute hypoxemic and acute hypercapnic respiratory failure. 2. Recurrent aspiration. 3. Resolving confusion/delirium. 4. Protein calorie malnutrition. 5. Pain at the right antecubital intravenous site. PLAN: 1. Discontinue current IV. We will attempt to place another IV this evening. 2. Continue cautious advancement of diet. 3. Continue physical therapy. 4. Anticipate discharge home soon if she continues to improve. cc: Octavio Jesus MD
[2019-09-09] MEDS: MERREM 1 GM in NS 50 ML IV SCH (04:12)
[2019-09-09] MEDS: VANCOMYCIN 1 GM/NS 1 GM/250 ML IVPB IV SCH (05:56)
--- NOTE | 2019-09-09 06:39 | Diag Imaging Result Doc PS360 ---
EXAM: CHEST-PORTABLE HISTORY: respiratory failure TECHNIQUE: Single view COMPARISON: 09/08/2019 FINDINGS: The lungs are well expanded. The heart is not enlarged. The vessels are not distended. There are minimal increased markings in the upper right lung. No effusion identified. IMPRESSION: No pulmonary edema. Questionable small right upper lobe infiltrate. Electronically signed by Renan Daily 09/09/2019 6:37 AM
[2019-09-09 07:12] LABS: HEMATOCRIT 39.5 % (37.0-47.0); HEMOGLOBIN 13.3 g/dL (12.0-16.0); MCH 30.2 PG (27-31); MCHC 33.7 g/dL (33-37); MCV 89.8 FL (81-99); MPV 9.9 FL (7.4-10.4); RBC 4.4 XMIL (4.2-5.4); RDW 13.2 % (11.5-14.5); WBC 12.2 X1000 (4.8-10.8)
[2019-09-09 07:31] LABS: AGAP 13; ALB/GLOB RATIO 1.3; ALKALINE PHOSPHATASE 231 U/L (32-104); BUN 17 mg/dL (8-22); CALCIUM 9.7 mg/dL (8.8-10.2); CHLORIDE 101 mmol/L (98-107); COSMO 273; CREATININE 0.6 mg/dL (0.5-0.9); ESTIMATED GFR > 60; GLUCOSE 96 mg/dL (70-104); GOT 26 U/L (10-30); GPT 59 U/L (10-36); POTASSIUM 4.1 mmol/L (3.5-5.1); SODIUM 136 mmol/L (136-145); TCO2 22 mmol/L (25-35); TOTAL BILIRUBIN 0.62 mg/dL (0.20-1.00)
[2019-09-09 08:02] VITALS: BP 128/75
[2019-09-09] MEDS: LASIX IV SCH (08:52)
[2019-09-09] MEDS: NICODERM PATCH TD SCH (08:52)
[2019-09-09] MEDS: BUSPAR PO SCH (08:52)
[2019-09-09] MEDS: KLONOPIN PO SCH (08:52)
--- NOTE | 2019-09-09 09:48 | DISCHARGE SUMMARY ---
ADMISSION DATE: 08/20/2019 DISCHARGE DATE: 09/09/2019 HISTORY AND HOSPITAL COURSE: This is a 24-year-old who presented to [facility] secondary to nausea, vomiting, abdominal pain, myalgias, and she was trying to get off of opiates. She had been trying to stop, but her withdrawal symptoms were severe, and so presented to the hospital. Her chest x-ray on presentation on 08/21/2019 showed some signs of bilateral pneumonia. There was concern about aspiration. They added some treatments, including doxycycline, and were going to increase her Suboxone and see how she did. On 08/25/2019, about 36 hours after presentation, she had spiked a fever to 103, and oxygen requirement continued to climb, and was sent to [facility], where she is treated for aspiration pneumonia. Her chest x-ray on 08/26/2019 showed likely marginal improvement at that time. She had a left subclavian central line placement, and was given broad-spectrum antibiotics. She had acute hypoxemic, acute hypercapnic respiratory failure, bilateral pneumonia, and leukopenia relative to thrombocytopenia. She had marked increase in CRP, and a negative influenza screen. She was checked for COVID-19, and it was negative. She continued to remain rather lethargic and slow in response, and her swallow was poor, and this slowly improved. I put her back on her Klonopin, and I put her on BuSpar at a lower dose. She showed steady improvement, was able to swallow. We did get a swallow study, and the swallow study done on 09/04/2019 showed deep contrast aspiration, no elicitation of cough reflex, and limited views of the esophagus and gastric fundus were grossly unremarkable, but clinically, her swallowing improved, no longer coughing. Chest x-ray on 09/06/2019 showed interval improvement in right basilar consolidation. Chest x-ray on 09/08/2019 showed improved right lower lobe atelectasis, and the x-ray done today, 09/09/2019, showed no pulmonary edema, questionable small right upper lobe infiltrate, but was eating, was stronger, and really wanted to go home. I think she is ready to go home. Her COVID-19 was negative. Influenza was negative. No growth from blood cultures. I am going to put her on Levaquin 500 mg p.o. daily, and I am going to discharge her on BuSpar 15 mg p.o. b.i.d., Klonopin 0.5 mg p.o. t.i.d., and I gave her a nicotine patch 21 mg daily, and her Levaquin 500 mg p.o. daily for 7 days. I told her she can go back to work on Monday, 7 days from now. 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 cc: Jairo uGnter MD
--- NOTE | 2019-09-09 10:27 | GASTROENTEROLOGY PROGRESS NOTE ---
DATE: 09/09/2019 SUBJECTIVE: Ms. Tomas is a 24-year-old female, sitting in bed. The patient has denied any nausea, vomiting, or abdominal pain. She also denied any swallowing problems. She said that she was able to tolerate her pureed diet well. OBJECTIVE: Vital Signs: Temperature 98.7 degrees, pulse 90, respirations 20, blood pressure 128/75, oxygen saturation 98% on room air. The patient's weight is 221 pounds. BMI is 34.6 kg/m2. General: She is alert, oriented x3, and in no acute distress. HEENT: Pale conjunctivae. No icterus. PERRL. Neck: Supple. Lungs: Clear to auscultation. Cardiovascular: Regular rate and rhythm. Abdomen: Obese, soft, nontender, nondistended. Active bowel sounds heard in all 4 quadrants. Extremities: No clubbing, no cyanosis, no edema. Pedal pulses 2+ present bilaterally. Neurologic: Alert and oriented x3. LABS: WBCs are 12.2, RBCs 4.4, hemoglobin is 13.3, hematocrit is 39.5, platelet count is 692,000. Sodium 136, potassium 4.1, chloride 101, carbon dioxide 22, anion gap 13, BUN 17, creatinine 0.6, glucose 96, calcium 9.7, total bilirubin 0.62, AST 26, ALT 59, alkaline phosphatase 231, albumin is 4. Chest x-ray today has shown no pulmonary edema, questionable small right upper lobe infiltrate. IMPRESSION AND PLAN: Respiratory failure Aspiration per barium swallow Malnutrition Dysphagia Elevated LFT's- we have ordered Hepatitis Panel-its nt drawn yet. Will recheck in clinic on follow up visit. PLAN: Ms. Tomas is a 24-year-old female with a history of polysubstance abuse. GI is following her for her dysphagia. The patient has discharge orders to go home today. The patient needs to continue with her PPIs for 30 days and then can start taking Pepcid 20 mg twice a day as needed. Continue to chew food well. The patient needs to follow up in the clinic as an outpatient in 4 weeks to discuss the hepatitis panel and elevated liver enzymes. Counseled to avoid hepatotoxic drugs. The patient has been counseled on smoking cessation and abstinence from polysubstance abuse. We will follow her up as an outpatient. This plan was discussed with Dr. Saucedo. Please call us for any further questions or concerns. Dictated by WALLY Ugarte for Karsten Saucedo MD cc: Karsten Saucedo MD [facility]
--- NOTE | 2019-09-09 10:30 | NEUROLOGY PROGRESS NOTE ---
DATE: 09/09/2019 LOCATION: Room 304. SUBJECTIVE: Ms. Tomas reports significant continued improvement in her speech and swallowing. She still has to concentrate and tilt her head forward, but she reports she is able to swallow without aspiration. She reports that she has been up walking without assistance. OBJECTIVE: On exam, speech is significantly less dysarthric and is easily understood. Palate elevates in the midline. Her ability to make guttural sounds continues diminished, but labial and lingual sounds are good today. I observed her standing from a seated position, and walking without difficulty. I did not examine her limb strength formally today. IMPRESSION: Generalized weakness, continuing to improve, almost back to baseline. I agree with plans for discharge soon. I have suggested that she have Neurology followup in a few months, and I will be glad to provide that. She understands to be in touch sooner if she has any deterioration or new problems. Thank you for asking Neurology to see Ms. Tomas. cc: MD BERHANE Gaytan III
[2019-09-10 11:18] LABS: HEPATITIS PROFILE ACUTE SEE COMMENTS
== END 2019-09-09 10:33 | disposition home or self-care (01) | DRG 391 ==
LOC: P.MEDSURG 09:58 → SUATTDRO 09:58 → P.MEDSURG 10:17 → 2N 08-24 17:59 → ICU 08-25 04:29 → 3N 09-07 15:46
PROVIDERS: ATTEND Emergency Medicine